=== PATIENT | female | born 1950 | race Caucasian/White ===

== ENCOUNTER → 2018-01-10 07:46 | Outpatient (CLI) | payer MEDICARE, SELFPAY | PROVIDERS: Family Provider Family Medicine; PCP Family Medicine; Visit Provider Family Medicine | DX: N28.1 Cyst of kidney, acquired (principal); R55 Syncope and collapse; I34.1 Nonrheumatic mitral (valve) prolapse | CPT/HCPCS: 76770; 93306 ==

== ENCOUNTER → 2018-01-15 09:45 | Outpatient (CLI) | payer MEDICARE, SELFPAY | PROVIDERS: Family Provider Family Medicine; PCP Family Medicine; Visit Provider Family Medicine | DX: Z00.00 Encounter for general adult medical examination without abnormal findings (principal); Z79.51 Long term (current) use of inhaled steroids | CPT/HCPCS: 77080 ==

== ENCOUNTER → 2018-01-25 09:42 | Outpatient (CLI) | payer MEDICARE, SELFPAY ==
[2018-01-25 12:39] LABS: Calcium,Total 9.1 mg/dL (8.5-10.1)
== END ==
PROVIDERS: Family Provider Family Medicine; PCP Family Medicine; Visit Provider Family Medicine
DX: Z13.820 Encounter for screening for osteoporosis (principal)
CPT/HCPCS: 36415; 82310

== ENCOUNTER → 2018-11-20 | Outpatient (CLI) | payer MEDICARE, SELFPAY ==
[2018-11-20 10:18] LABS: Absolute Lymphocyte Count 1.59 X10^3/ul (0.83-4.51); Absolute Neutrophil Count 1.9 X10^3/uL (2.0-7.7); Basophil# 0.02 X10^3/uL; Basophil% 0.5 % (0-1); Eosinophil# 0.13 X10^3/uL; Eosinophils% 3.3 % (0-5); Hematocrit 40.8 % (37-47); Hemoglobin 13.4 g/dl (12.0-15.0); Lymphocyte # 1.59 X10^3/ul (4.0); Lymphocyte % 39.8 % (19-41); Mean Corp Hgb Conc 32.8 g/gl (32-36); Mean Corpuscular Hgb 29.6 pg (27.0-32.0); Mean Corpuscular Volume 90.1 fL (81-99); Mean Platelet Vol. 11.3 fl (6.2-12.0); Neutrophil # 1.85 X10^3/uL (2.7-7.7); Neutrophil % 46.4 % (47-70); Platelet Count 200 K/mm3 (150-450); RBC Distribution Width CV 12.6 % (11.6-14.6); RBC Distribution Width SD 41.4 fl (35.1-43.9); Red Blood Count 4.53 M/mm3 (4.2-5.4)
[2018-11-20 10:19] LABS: POSITIVE COUNT NO; POSITIVE DIFFERENTIAL NO; POSITIVE MORPHOLOGY NO
[2018-11-20 10:34] LABS: Vitamin D,25 Hydroxy 39.7 ng/mL (29.95-100.01)
[2018-11-20 10:35] LABS: PTHIN 42.1 pg/mL (18.4-80.1)
[2018-11-20 10:45] LABS: Anion Gap 5 (5-15); BUN 8 mg/dL (7-18); BUN/Creat Ratio 11.8 RATIO (10-20); Calcium,Total 8.8 mg/dL (8.5-10.1); Chloride 106 mmol/L (98-107); Cholesterol 237 mg/dL (200); Creatinine, Serum 0.68 mg/dL (0.55-1.02); EST Glomerular Filtration Rate 92 mL/min (>60); Est Glom Filt Rate - Afr Amer 111 mL/min (>60); Glucose 89 mg/dL (74-106); High Density Lipoprotein 87 mg/dL; Sodium Level 140 mmol/L (136-145); Thyroid Stim Hormone (TSH) 1.88 uIU/mL (0.358-3.74); Triglycerides 65 mg/dL; Very Low Density Lipoprotein 13 mg/dL (5-40)
== END | disposition home or self-care (01) ==
PROVIDERS: Family Provider Family Medicine; PCP Family Medicine; Referring Provider Family Medicine; Visit Provider Family Medicine
DX: Z00.00 Encounter for general adult medical examination without abnormal findings (principal); R53.83 Other fatigue; E55.9 Vitamin D deficiency, unspecified
CPT/HCPCS: 36415; 80048; 80061; 82306; 83970; 84443; 85025

== ENCOUNTER → 2019-12-08 08:37 | Outpatient (CLI) | payer MEDICARE, SELFPAY ==
[2019-12-08 09:57] LABS: Absolute Neutrophil Count 2.4 X10^3/uL (2.0-7.7); Basophil# 0.05 X10^3/uL; Eosinophil# 0.12 X10^3/uL; Eosinophils% 2.3 % (0-5); Hematocrit 39.2 % (37-47); Hemoglobin 12.6 g/dL (12.0-15.0); Mean Corp Hgb Conc 32.1 g/dL (32-36); Mean Corpuscular Hgb 30.4 pg (27.0-32.0); Mean Corpuscular Volume 94.5 fL (81-99); Mean Platelet Vol. 11.4 fl (6.2-12.0); Monocyte# 0.43 X10^3/uL; Monocyte% 8.4 % (0-10); NRBC Flagged by Analyzer 0 % (0-5); Neutrophil # 2.41 X10^3/uL (2.7-7.7); Neutrophil % 47.1 % (47-70); Platelet Count 210 K/mm3 (150-450); RBC Distribution Width CV 12.6 % (11.6-14.6); RBC Distribution Width SD 43.7 fl (35.1-43.9); Red Blood Count 4.15 M/mm3 (4.2-5.4); White Blood Count 5.1 K/mm3 (4.4-11.0)
[2019-12-08 10:18] LABS: Vitamin B12 1072 pg/mL (211-911); Vitamin D,25 Hydroxy 80.4 ng/mL
[2019-12-08 10:58] LABS: Ferritin 33 ng/mL (8-252); Iron 83 ug/dL (50-170); Iron Binding Capacity,Total 313 ug/dL (250-450); PERCENT IRON SATURATION 26.5 % (15.0-55.0); T4 Free Direct 1.03 ng/dL (0.76-1.46); Thyroid Stim Hormone (TSH) 2.03 uIU/mL (0.358-3.74)
[2019-12-09 15:27] LABS: ANTINUCLEAR ANTIBODIES DIRECT Negative (Negative)
[2019-12-11 12:09] LABS: DHEA Sulfate 24.9 ug/dL (20.4-186.6); Testosterone, % Free 1.44 % (0.50-2.80); Testosterone, Free < 0.04 ng/dL (0.10-0.85); Testosterone, Total < 3 ng/dL (3-41)
[2019-12-11 15:24] LABS: Zinc, Plasma or Serum 74 ug/dL (56-134)
== END ==
PROVIDERS: PCP Family Medicine; Referring Provider Dermatology; Visit Provider Dermatology
DX: L65.0 Telogen effluvium (principal); B35.4 Tinea corporis; L82.1 Other seborrheic keratosis; L57.8 Other skin changes due to chronic exposure to nonionizing radiation
CPT/HCPCS: 36415; 82306; 82607; 82627; 82652; 82728; 82746; 83540; 83550; 84402; 84403; 84439; 84443; 84630; 85025; 86038; 82626

== ENCOUNTER → 2020-01-14 08:19 | Outpatient (CLI) | payer MEDICARE, SELFPAY | PROVIDERS: PCP Family Medicine; Referring Provider Family Medicine | DX: Z00.00 Encounter for general adult medical examination without abnormal findings (principal) | CPT/HCPCS: 36416 ==

== ENCOUNTER → 2020-01-22 07:30 | Outpatient (CLI) | payer MEDICARE, SELFPAY ==
--- NOTE | 2020-01-22 07:40 | BI_ITS ---
MAMMOGRAPHY - BILATERAL SCREENING REASON FOR EXAM: Female, 69 years old. Routine annual screening examination. PERTINENT HISTORY: Non-contributory. Remote right excisional breast biopsy. TECHNIQUE: Digital bilateral breast chapincito (3D mammographic acquisition) in the CC and MLO projections. 2-D mediolateral oblique (MLO) and craniocaudad (CC) views of both breasts were obtained. CAD: Full Field Digital Mammography with Computer Added Detection was performed. COMPARISON: Comparison is made with prior study dated 12/01/2016 and 04/06/2015. FINDINGS: Breast Composition: There are scattered areas of fibroglandular density. There are no dominant masses or suspicious calcifications. There is stable retraction of the right alveolar complex. Post biopsy scarring is seen in the retroareolar region of the right breast. No other significant abnormalities are identified. There has been no significant change since the prior study. BI/SCREEN MAMM (CAD) W/CHAPINCITO BILAT IMPRESSION: Stable bilateral screening mammogram. Yearly follow-up mammogram recommended. (A) ASSESSMENT CATEGORY: BIRADS Category 2: Benign. A letter regarding these results will be sent to the patient by the facility within 30 days. Approximately 10% of breast cancers are not detected by mammography. A normal mammogram should not delay biopsy of a clinically suspicious abnormality. [id number] Electronically Signed: Julio César Manzo, at 8:38 EDT , Service support ,
== END ==
PROVIDERS: PCP Family Medicine; Referring Provider Obstetrics & Gynecology; Visit Provider Obstetrics & Gynecology
DX: Z12.31 Encounter for screening mammogram for malignant neoplasm of breast (principal)
CPT/HCPCS: 77063; 77067

== ENCOUNTER → 2020-06-25 09:01 | Outpatient (CLI) | payer MEDICARE, SELFPAY ==
[2020-06-25 10:53] LABS: Free T3 2.4 pg/mL (2.18-3.98); Prealbumin 24.7 mg/dL (20.0-40.0); T4 Total, Thyroxin 8.5 ug/dL (4.8-13.9)
== END ==
PROVIDERS: PCP Family Medicine; Referring Provider Dermatology; Visit Provider Dermatology
DX: L65.0 Telogen effluvium (principal); Z48.02 Encounter for removal of sutures
CPT/HCPCS: 36415; 84134; 84436; 84481

== ENCOUNTER → 2021-02-10 13:18 | Outpatient (CLI) | payer MEDICARE, SELFPAY ==
--- NOTE | 2021-02-10 13:22 | BI_ITS ---
MAMMOGRAPHY - BILATERAL SCREENING REASON FOR EXAM: Female, 70 years old. Routine annual screening examination. PERTINENT HISTORY: Non-contributory. Remote right excisional breast biopsy. TECHNIQUE: Digital bilateral breast chapincito (3D mammographic acquisition) in the CC and MLO projections. 2-D mediolateral oblique (MLO) and craniocaudad (CC) views of both breasts were obtained. CAD: Full Field Digital Mammography with Computer Added Detection was performed. COMPARISON: Comparison is made with prior study dated 01/22/2020 and 12/01/2016. FINDINGS: Breast Composition: There are scattered areas of fibroglandular density. There are no dominant masses or suspicious calcifications. No other significant abnormalities are identified. There has been no significant change since the prior study. BI/SCRN MAMM (CAD)W/CHAPINCITO BILAT IMPRESSION: Stable bilateral screening mammogram. Yearly follow-up mammogram recommended. (A) ASSESSMENT CATEGORY: BIRADS Category 1: Negative. A letter regarding these results will be sent to the patient by the facility within 30 days. Approximately 10% of breast cancers are not detected by mammography. A normal mammogram should not delay biopsy of a clinically suspicious abnormality. [id number] Electronically Signed: Julio César Manzo MD at 14:31 EDT , Service support ,
--- NOTE | 2021-02-10 13:30 | BD_ITS ---
STUDY: DUAL ENERGY X-RAY ABSORPTIOMETRY / DXA REASON FOR EXAM: Female, 70 years old. V76.12ScreeningBONE DENSITY REASON FOR EXAM TECHNIQUE: Bone Mineral Density (BMD) measurements of lumbar spine and bilateral hips were obtained. COMPARISON: Comparison is made with prior study dated 01/15/2018. FINDINGS: Lumbar Spine (L1-L4): g/cm2 (0.684) / T-score (-3.3) / Z-score (-1.2) Findings are suggestive of osteoporosis with a high fracture risk. Left Femur Total: g/cm2 (0.710) / T-score (-1.9) / Z-score (-0.4) Left Femoral Neck: g/cm2 (0.640) / T-score (-1.9) / Z-score (-0.1) Right Femur Total: g/cm2 (0.737) / T-score (-1.7) / Z-score (-0.2) Right Femoral Neck: g/cm2 (0.676) / T-score (-1.6) / Z-score (0.2) The T-Scores on the most recent prior examination were: Lumbar Spine (L1-L4): There has been worsening of bone density since the previous examination. Left Femur Total: which represents a worsening of 9.1%. Right Femur Total: which represents a worsening of 4%. BD/Dexa Bone Density Study IMPRESSION: The patient is considered osteoporotic as outlined below according to World Jarad Organization (WHO) criteria with a high fracture risk. There has been worsening of bone density since the previous examination. Reference Information: The T-score is the number of standard deviations above or below the standard which is normal for young adults at their peak bone mineral density. The World Health Organization (WHO) interprets the T-scores as follows: Above -1 Normal bone density Between -1 and -2.5 Osteopenia Equal to / or below -2.5 Osteoporosis As a practical clinical guideline, osteopenia may be graded as follows: Mild -1 through -1.5 Moderate -1.6 through -2.0 Severe -2.1 through -2.4 The Z-score is the number of standard deviations above or below age-matched controls. A Z-score of less than -1.5 would be considered abnormal. References: 1. NIH Osteoporosis and Related Bone Diseases www osteo.org 2. International Society for Clinical Densitometry www iscd.org 3. National Osteoporosis Foundation www nof.org Electronically Signed: Julio César Manzo MD at 14:41 EDT , Service support ,
== END ==
PROVIDERS: PCP Family Medicine; Referring Provider Family Medicine; Visit Provider Family Medicine
DX: Z12.31 Encounter for screening mammogram for malignant neoplasm of breast (principal); M81.0 Age-related osteoporosis without current pathological fracture; Z78.0 Asymptomatic menopausal state
CPT/HCPCS: 77063; 77067; 77080

== ENCOUNTER → 2021-02-16 13:31 | Outpatient (CLI) | payer MEDICARE, SELFPAY ==
[2021-02-16 15:29] LABS: PTHIN 35.1 pg/mL (18.4-80.1)
[2021-02-16 15:34] LABS: Vitamin D,25 Hydroxy 66.8 ng/mL
[2021-02-16 15:49] LABS: Anion Gap 3 (5-15); BUN 11 mg/dL (7-18); BUN/Creat Ratio 17.5 RATIO (10-20); Calcium,Total 9.2 mg/dL (8.5-10.1); Chloride 104 mmol/L (98-107); Creatinine, Serum 0.63 mg/dL (0.55-1.02); EST Glomerular Filtration Rate 100 mL/min (>60); Est Glom Filt Rate - Afr Amer 120 mL/min (>60); Glucose 89 mg/dL (74-106); Magnesium 2.4 mg/dL (1.6-2.6); Phosphorus 3.8 mg/dL (2.5-4.9); Potassium 3.7 mmol/L (3.5-5.1); Sodium Level 140 mmol/L (136-145); Thyroid Stim Hormone (TSH) 1.44 uIU/mL (0.358-3.74)
== END ==
PROVIDERS: PCP Family Medicine; Referring Provider Family Medicine; Visit Provider Family Medicine
DX: M81.0 Age-related osteoporosis without current pathological fracture (principal); L65.9 Nonscarring hair loss, unspecified
CPT/HCPCS: 36415; 80048; 82306; 82330; 83735; 83970; 84100; 84443

== ENCOUNTER → 2021-04-21 | Outpatient (CLI) | payer MEDICARE, SELFPAY | END | disposition home or self-care (01) | PROVIDERS: PCP Family Medicine; Referring Provider Family Medicine; Visit Provider Family Medicine | DX: U07.1 COVID-19 (principal) | CPT/HCPCS: 87635; U0005; U0003 ==

== ENCOUNTER 2021-04-22 18:20 | Outpatient (CLI) | payer MEDICARE, SELFPAY ==
[2021-04-22 18:32] VITALS: BP 105/66; PULSE 98; RESP 16; TEMP 37.2; O2SAT 99; BMI 21.7
[2021-04-22] MEDS: 0.9% Saline Lock 10 ML Syringe IV (18:32)
[2021-04-22 19:09] VITALS: BP 107/57; PULSE 81; RESP 16; TEMP 37.1; O2SAT 95
[2021-04-22 19:56] VITALS: BP 104/64; PULSE 77; RESP 16; TEMP 37.1; O2SAT 97
== END 2021-04-22 20:06 | disposition home or self-care (01) ==
LOC: MS3OUT 18:20 → MS3 18:21
PROVIDERS: PCP Family Medicine; Visit Provider Nurse Practitioner Acute Care
DX: Z23 Encounter for immunization (principal); U07.1 COVID-19
CPT/HCPCS: J7050; M0245; Q0245; A4216

== ENCOUNTER 2021-06-15 11:43 | Outpatient (CLI) | payer MEDICARE, SELFPAY ==
[2021-06-15 15:56] LABS: Color, Urine Yellow (Yellow); Glucose, Dipstick Normal (Normal); Ketone-Dipstick 15 mg/dl (Negative); Leukocyte Esterase-Dipstick Negative /ul (Negative); Nitrite-Dipstick Negative (Negative); Occult Blood-Urine Negative /ul (Negative); Protein-Dipstick Negative (Negative); Urine Bilirubin Dipstick Negative (Negative); Urine Clarity Clear (Clear); Urine Urobilinogen Normal (Normal)
== END 2021-06-15 23:59 | disposition short-term general hospital (02) ==
LOC: LABSPEC 11:44
PROVIDERS: Family Medicine; PCP Family Medicine; Referring Provider Family Medicine; Visit Provider Family Medicine
DX: R52 Pain, unspecified (principal); R39.9 Unspecified symptoms and signs involving the genitourinary system
CPT/HCPCS: 81002; 87086

== ENCOUNTER 2021-06-24 09:37 | Outpatient (CLI) | payer MEDICARE, SELFPAY ==
--- NOTE | 2021-06-24 09:41 | US_ITS ---
STUDY: RENAL ULTRASOUND - COMPLETE REASON FOR EXAM: Female, 71 years old. BACK PAIN LEFT WORSE THAN RIGHT TECHNIQUE: Ultrasound evaluation of the kidneys was performed with real-time and static cruz-scale imaging. COMPARISON: Jan 10 2018 9:45am FINDINGS: RIGHT KIDNEY: Normal location of the right kidney, which is normal in size. The right kidney measures 11.1 x 6.4 cm. There is a normal cortex of the right kidney. The renal cortex measures 1.6 cm. There is no right renal mass or cyst. There are no right renal calculi. There is mild hydronephrosis of the right kidney. DISTAL RIGHT URETER: There is non-visualization of the distal right ureter. There is no demonstrated right ureterovesical junction calculus. There is no demonstrated right ureteral jet. LEFT KIDNEY: Normal location of the left kidney, which is normal in size. The left kidney measures 10.5 x 5.5 cm. There is a normal cortex of the left kidney. The renal cortex measures 1.6 cm. Cyst measures 49 x 46 mm and 63 x 15 mm. There are no left renal calculi. There is no left hydronephrosis. DISTAL LEFT URETER: There is non-visualization of the distal left ureter. There is no demonstrated left ureterovesical junction calculus. There is a visualized left ureteral jet. AORTA: There is obscuration of the abdominal aorta by overlying bowel gas I.V.C.: The IVC is obscured. BLADDER: The distended urinary bladder has a volume of 352 ml. There is a normal wall thickness of the distended urinary bladder. There is no demonstrated mass within the urinary bladder. There are no demonstrated bladder calculi. US/Kidney and Bladder IMPRESSION: There is mild hydronephrosis of the right kidney. The urinary bladder is distended. This can suggest urinary retention. There is hypoechoic foci of the left kidney. These are consistent for cysts. No follow up required. Electronically Signed: Maynor Bustos MD at 17:51 EST ,
== END 2021-06-24 23:59 | disposition home or self-care (01) ==
LOC: US 09:39
PROVIDERS: PCP Family Medicine; Referring Provider Urology; Visit Provider Urology
DX: M54.9 Dorsalgia, unspecified (principal); R39.89 Other symptoms and signs involving the genitourinary system
CPT/HCPCS: 76770

== ENCOUNTER 2021-06-29 07:06 | Outpatient (CLI) | payer MEDICARE, SELFPAY ==
[2021-06-29 10:52] LABS: Anion Gap 5 (5-15); BUN 12 mg/dL (7-18); BUN/Creat Ratio 16.3 RATIO (10-20); Calcium,Total 9.1 mg/dL (8.5-10.1); Chloride 104 mmol/L (98-107); Creatinine, Serum 0.74 mg/dL (0.55-1.02); EST Glomerular Filtration Rate 83 mL/min (>60); Est Glom Filt Rate - Afr Amer 100 mL/min (>60); Glucose 87 mg/dL (74-106); Potassium 3.8 mmol/L (3.5-5.1); Sodium Level 139 mmol/L (136-145)
== END 2021-06-29 23:59 | disposition home or self-care (01) ==
LOC: MTLAB 07:08
PROVIDERS: PCP Family Medicine; Referring Provider Urology; Visit Provider Urology
DX: N13.30 Unspecified hydronephrosis (principal)
CPT/HCPCS: 36415; 80048

== ENCOUNTER 2021-07-13 07:11 | Outpatient (CLI) | payer MEDICARE, SELFPAY ==
--- NOTE | 2021-07-13 07:17 | CT_ITS ---
STUDY: CT ABDOMEN AND PELVIS WITH AND WITHOUT CONTRAST REASON FOR EXAM: Female, 71 years old. Flank pain RADIATION DOSAGE (If Supplied By Facility): CTDIvol = ( 14.39 ) mGy, DLP = ( 1893.95 ) mGycm TECHNIQUE: Transaxial images were obtained from the dome of the diaphragm to the symphysis pubis without oral contrast. IV 100mL Isovue-300 was administered. Sagittal and coronal images were reconstructed. Individualized dose optimization techniques were used for this CT. COMPARISON: Ultrasound from 06/24/2021 FINDINGS: Lung bases are incompletely visualized. The liver is unremarkable aside from scattered simple cysts. No suspicious solid lesion. Normal gallbladder and extrahepatic biliary system. There are multiple benign calcified granulomata of the spleen. Normal pancreas. Normal bilateral adrenal glands. Right kidney enhances normally, there are scattered simple cysts and a mildly dilated UPJ am unsure if this is simply an extrarenal pelvis or a true dilatation of the UPJ there is no dilatation of the right ureter, no obstructing stone is noted. Left kidney shows large simple cysts and nonobstructing punctate stones. There is no left-sided hydronephrosis or hydroureter. Normal visualized stomach. Normal small intestine. Retained stool noted throughout the majority of the colon. There is non-visualization of the appendix. Normal abdominal aorta. Normal inferior vena cava. Normal retroperitoneum. Normal urinary bladder. Uterus is present, the endometrium cannot be accurately evaluated with CT. Normal abdominal wall. There are diffuse degenerative changes of the visualized lumbar spine, and pelvis. CT/CT Abd/Pelvis W/WO Contrast IMPRESSION: No obstructive uropathy. There is mild dilatation of the right UPJ or this may be an extrarenal pelvis. Bilateral simple renal cysts, no specific follow-up needed Nonobstructing left nephrolithiasis Simple hepatic cysts, no specific follow-up needed. Retained stool throughout the colon Uterus is present, the endometrium cannot be accurately evaluated with CT Electronically Signed: Eliazar Kasper MD at 17:38 EST ,
== END 2021-07-13 23:59 | disposition home or self-care (01) ==
PROVIDERS: PCP Family Medicine; Referring Provider Urology; Visit Provider Urology
DX: N13.30 Unspecified hydronephrosis (principal)
CPT/HCPCS: 74178; Q9967

== ENCOUNTER → 2021-09-05 | Outpatient (CLI) | payer MEDICARE, SELFPAY ==
[2021-09-05 18:48] LABS: Anion Gap 7 (5-15); BUN 7 mg/dL (7-18); BUN/Creat Ratio 10.9 RATIO (10-20); Calcium,Total 9.5 mg/dL (8.5-10.1); Chloride 103 mmol/L (98-107); Creatinine, Serum 0.64 mg/dL (0.55-1.02); EST Glomerular Filtration Rate 97 mL/min (>60); Est Glom Filt Rate - Afr Amer 117 mL/min (>60); Glucose 95 mg/dL (74-106); Magnesium 2.7 mg/dL (1.6-2.6); Potassium 3.7 mmol/L (3.5-5.1); Sodium Level 137 mmol/L (136-145); T4 Total, Thyroxin 10.8 ug/dL (4.8-13.9); Thyroid Stim Hormone (TSH) 1.86 uIU/mL (0.358-3.74)
== END | disposition home or self-care (01) ==
LOC: MTLAB 15:33
PROVIDERS: PCP Family Medicine; Referring Provider Internal Medicine Gastroenterology; Visit Provider Internal Medicine Gastroenterology
DX: K59.00 Constipation, unspecified (principal); R14.0 Abdominal distension (gaseous)
CPT/HCPCS: 36415; 80048; 83735; 84436; 84443

== ENCOUNTER → 2021-09-15 | Outpatient (CLI) | payer MEDICARE, SELFPAY ==
--- NOTE | 2021-09-15 11:05 | RAD_ITS ---
STUDY: XR Abdomen W/ Decub and/or Erect Views 09/15/2021 11:05 AM REASON FOR EXAM: Female, 71 years old. ABDOMINAL PAIN CHRONIC CONSTIPATION TECHNIQUE: XR Abdomen W/ Decub and/or Erect Views COMPARISON: None FINDINGS: Normal visualized lung bases. There is an unremarkable bowel gas pattern. There is no demonstrated free abdominal air. The visualized liver, spleen and kidneys are grossly normal in size and morphology. Normal soft tissue structures. Normal visualized osseous structures. RAD/Abd Inc Decub and/or Erect IMPRESSION: There are no acute findings. Electronically Signed: Maynor Bustos MD at 17:07 EDT ,
== END | disposition home or self-care (01) ==
LOC: RAD 10:50
PROVIDERS: PCP Family Medicine; Referring Provider Internal Medicine Gastroenterology; Visit Provider Internal Medicine Gastroenterology
DX: K59.00 Constipation, unspecified (principal)
CPT/HCPCS: 74019

== ENCOUNTER → 2021-09-23 | Outpatient (CLI) | payer MEDICARE, SELFPAY ==
--- NOTE | 2021-09-23 07:56 | RAD_ITS ---
STUDY: BARIUM ENEMA. REASON FOR EXAM: Female, 71 years old. CHANGE IN BOWELS FLUOROSCOPY TIME (if supplied): ( 1 minute and 11 seconds ) minutes/seconds. 17 images were obtained. TECHNIQUE: Barium was introduced retrograde through the rectum. The entire colon was opacified. Imaging was obtained. COMPARISON: None. FINDINGS: The entire colon was opacified. There is no evidence of a retrograde or antegrade obstruction to the floor of contrast. No mass lesion is seen. RAD/Barium Enema No Air Cont IMPRESSION: Unremarkable barium enema. Electronically Signed: Julio César Manzo MD at 10:48 EDT ,
== END | disposition home or self-care (01) ==
LOC: RAD 07:55
PROVIDERS: PCP Family Medicine; Referring Provider Internal Medicine Gastroenterology; Visit Provider Internal Medicine Gastroenterology
DX: R19.4 Change in bowel habit (principal)
CPT/HCPCS: 74270

== ENCOUNTER → 2021-10-17 | Outpatient (CLI) | payer MEDICARE, SELFPAY ==
--- NOTE | 2021-10-17 09:44 | US_ITS ---
STUDY: RENAL ULTRASOUND - COMPLETE REASON FOR EXAM: Female, 71 years old. ABD PAIN -- RIGHT FLANK PAIN TECHNIQUE: Ultrasound evaluation of the kidneys was performed with real-time and static cruz-scale imaging. COMPARISON: Comparison is made with prior study dated 06/24/2021. FINDINGS: RIGHT KIDNEY: Normal location of the right kidney, which is normal in size. The right kidney measures 10.4 cm x 5 cm x 5.7 cm. There is a normal cortex of the right kidney. The renal cortex measures 1.5 cm. There is no right renal mass or cyst. There are no right renal calculi. There is an extra-renal pelvis of the right kidney. There is no distention of the renal calyces. DISTAL RIGHT URETER: There is non-visualization of the distal right ureter. There is no demonstrated right ureterovesical junction calculus. There is no demonstrated right ureteral jet. LEFT KIDNEY: Normal location of the left kidney, which is normal in size. The left kidney measures 10.3 cm x 4.7 cm x 5 cm. There is a normal cortex of the left kidney. The renal cortex measures 1.7 cm. 2 left renal cysts are seen. The larger measures 5.8 cm x 4.9 cm x 4.5 cm. There are no left renal calculi. There is no left hydronephrosis. DISTAL LEFT URETER: There is non-visualization of the distal left ureter. There is no demonstrated left ureterovesical junction calculus. There is a visualized left ureteral jet. BLADDER: The distended urinary bladder has a volume of 364.1 ml. There is a normal wall thickness of the distended urinary bladder. There is no demonstrated mass within the urinary bladder. There are no demonstrated bladder calculi. US/Kidney and Bladder IMPRESSION: Stable left renal cysts. Electronically Signed: Julio César Manzo MD at 13:00 EDT ,
== END | disposition home or self-care (01) ==
LOC: US 09:42
PROVIDERS: PCP Family Medicine; Referring Provider Urology; Visit Provider Urology
DX: R10.9 Unspecified abdominal pain (principal); N28.89 Other specified disorders of kidney and ureter
CPT/HCPCS: 76770

== ENCOUNTER → 2022-01-09 | Outpatient (CLI) | payer MEDICARE, SELFPAY ==
--- NOTE | 2022-01-09 09:55 | RAD_ITS ---
STUDY: X-RAY CHEST REASON FOR EXAM: Female, 71 years old. Fatigue. TECHNIQUE: Frontal and lateral views of the chest. COMPARISON: 06/08/2014. FINDINGS: Stable hyperinflation. There is no demonstrated pleural abnormality. Normal size heart. Normal mediastinum and moraima. Normal visualized pulmonary arteries. Normal visualized aortic arch and descending thoracic aorta. Normal visualized thoracic spine. Normal visualized ribs, clavicles, and shoulders. There is no demonstrated abnormality of the visualized soft tissue structures of the upper abdomen. RAD/Chest PA and Lateral IMPRESSION: Stable hyperinflation. No active or acute cardiopulmonary disease. Electronically Signed: Efra Newman, at 11:30 EDT ,
--- NOTE | 2022-01-09 09:55 | RAD_ITS ---
STUDY: X-RAY - THORACIC SPINE REASON FOR EXAM: Female, 71 years old. Back pain. TECHNIQUE: 2 view(s) of the thoracic spine were obtained on 3 images. COMPARISON: None. FINDINGS: Osteopenia. Normal kyphosis of the thoracic spine. There is no substantial scoliosis. Normal thoracic vertebrae and endplates. Mild diffuse intervertebral disc space narrowing with small osteophytes. The soft tissue structures are unremarkable. RAD/Thoracic Spine 2 Views IMPRESSION: Osteopenia with diffuse mild lumbosacral spondylosis. No acute abnormality, evidence of erosive changes or fusion. Electronically Signed: Efra Newman, at 12:27 EDT ,
[2022-01-09 12:24] LABS: Vitamin B12 715 pg/mL (211-911); Vitamin D,25 Hydroxy 81.4 ng/mL
[2022-01-09 12:33] LABS: Erythrocyte Sedimentation Rate 10 mm/hr (0-30)
[2022-01-09 12:36] LABS: Hematocrit 40.8 % (37-47); Hemoglobin 13.7 g/dL (12.0-15.0); Mean Corp Hgb Conc 33.6 g/dL (32-36); Mean Corpuscular Hgb 30.9 pg (27.0-32.0); Mean Corpuscular Volume 91.9 fL (81-99); Platelet Count 206 K/mm3 (150-450); RBC Distribution Width CV 12.3 % (11.6-14.6); RBC Distribution Width SD 41.7 fl (35.1-43.9); Red Blood Count 4.44 M/mm3 (4.2-5.4); White Blood Count 3.9 K/mm3 (4.4-11.0)
[2022-01-09 12:49] LABS: CRP < 2.90 mg/L (0.0-3.0); Ferritin 33 ng/mL (8-252); Iron 109 ug/dL (50-170); Rheumatoid Factor < 10.0 IU/mL (<15); Thyroid Stim Hormone (TSH) 1.69 uIU/mL (0.358-3.74)
[2022-01-10 17:47] LABS: ANTINUCLEAR ANTIBODIES DIRECT Negative (Negative)
== END | disposition home or self-care (01) ==
PROVIDERS: PCP Family Medicine; Referring Provider Family Medicine; Visit Provider Family Medicine
DX: R53.83 Other fatigue (principal); M85.80 Other specified disorders of bone density and structure, unspecified site; M54.9 Dorsalgia, unspecified
CPT/HCPCS: 36415; 71046; 72070; 82306; 82607; 82728; 83540; 84443; 85027; 85652; 86038; 86140; 86431

== ENCOUNTER 2023-05-12 04:45 | Emergency (ER) | payer MEDICARE, SELFPAY ==
[2023-05-12 04:46] VITALS: BP 123/58; PULSE 69; RESP 16; TEMP 37; O2SAT 98; BMI 22.4
--- NOTE | 2023-05-12 05:10 | EDS_ITS ---
HPI HPI - GI History of Present Illness Chief Complaint: Constipation Informant: patient and spouse/S.O. Abdominal Pain/Flank Pain Onset: Weeks Context: Gradual Onset Timing: Continuous Current Severity: Mild Maximum Severity: Mild Nausea/Vomiting/Emesis GI Symptom: Positive for Nausea Severity: Mild Diarrhea/Melena/Hematochezia GI Symptom: Negative for Diarrhea, Melena or Hematochezia Associated Symptoms Associated Symptoms: Negative for Dysuria, Frequency, Hematuria or Urgency Narrative Narrative: 73-year-old female history of constipation. States she has not had a significant bowel movement for weeks. She has used laxatives at home. Enemas without any relief. Mild nausea no vomiting. Mild cramping. No dysuria. No fever. Prior abdominal surgeries include ovarian cyst removal and appendectomy. She is on no pain medications. No significant dietary changes. No recent hospitalization. Prior similar symptoms: Yes Recent Illness/Hospitalization: No [facility] Medical History Macular degeneration Mitral valve prolapse Home Medications ascorbate calcium (vitamin C) 500 mg capsule 1 g PO DAILY 04/22/21 [History Last Taken Unknown] cholecalciferol (vitamin D3) 125 mcg (5,000 unit) tablet (Vitamin D3) 125 mcg PO DAILY 04/22/21 [History Last Taken Unknown] coenzyme Q10 30 mg capsule (CoQ-10) 30 mg PO DAILY 04/22/21 [History Last Taken Unknown] lactobacillus combination no.4 3 billion cell capsule (Probiotic) 3,000 mmu cells PO DAILY 04/22/21 [History Last Taken Unknown] magnesium 200 mg tablet 400 mg PO DAILY 04/22/21 [History Last Taken Unknown] multivitamin 1 tab PO DAILY 04/22/21 [History Last Taken Unknown] omega-3 fatty acids 1,000 mg PO DAILY 04/22/21 [History Last Taken Unknown] psyllium 1 packet PO DAILY 04/22/21 [History Last Taken Unknown] zinc 25 mg tablet 25 mg PO DAILY 04/22/21 [History Last Taken Unknown] Allergy/AdvReac Type Severity Reaction Status Date / Time No Known Allergies Allergy Verified 04/22/21 13:20 Surgical History S/P appy Social History Smoking Status: Never smoker ROS ROS ED ROS Narrative Constipation. Mild nausea. Review of Systems ROS Unobtainable: Denies due to encephalopathy Constitutional Constitutional ED: Denies chills or fever(s) ENT ENT ED: Denies ear pain Cardiovascular Cardiovascular: Denies chest pain Respiratory/Chest Respiratory/Chest: Denies cough or dyspnea Gastrointestinal Gastrointestinal: Reports constipation and nausea Genitourinary Genitourinary ED: Denies dysuria or hematuria Musculoskeletal Musculoskeletal: Denies arthralgias Integumentary Denies abscess Neurologic Neurologic: Denies headache(s) Psychiatric Psychiatric: Denies anxiety Endocrine Endocrinology: Denies polydipsia Hematologic/Lymphatic Hematologic/Lymphatic: Denies easy bleeding Allergic/Immunologic Allergic/Immunologic ED: Denies mouth swelling, tongue swelling or urticaria EXAM Physical Exam Narrative Exam Narrative: Well-appearing 73-year-old female. Vital signs stable afebrile. HEENT exam unremarkable. Lungs clear equal symmetrical. Heart regular rhythm no murmur. Abdomen soft, nontender, nondistended normal bowel sounds no peritoneal signs. No localizing tenderness. No hernia or mass. No distention nor obstruction. Benign abdominal exam. Soft and scaphoid. Moving all 4 extremities. Awake and alert. No focal motor deficits. Benign exam. Const Vital Signs: 05/12/23 04:46 Temperature 98.6 F Temperature Source Oral Pulse Rate 69 Respiratory Rate 16 Blood Pressure 123/58 H Blood Pressure Mean 79 Pulse Ox 98 Oxygen Delivery Method Room Air Positive well nourished and well developed; Negative for obese, cachectic, contractures or unkempt General Appearance ED: well developed and NAD; Negative for unkempt, cachectic, contractures or pallor Nutritional Appearance: Negative for cachectic or obese HEENT Reports moist mucous membranes normocephalic and atraumatic; Negative for trauma or tenderness Eyes PERRL and EOMs intact bilaterally General Eye ED: Negative for pale conjunctiva or scleral icterus Neck no lymphadenopathy, supple and no JVD General: Negative for tenderness Carotids: Negative for other Lymph Lymphatic: Negative for other Resp normal respiratory effort and clear to auscultation bilaterally Effort and Inspection: Negative for respiratory distress Auscultation: Negative for rales, rhonchi or wheezes Cardio regular rate, regular rhythm, S1 normal heart sound, S2 normal heart sound and no murmurs Rate: Negative for bradycardia or tachycardic Rhythm: Negative for abnormal rhythm GI non-tender, non-distended and no masses Inspection: Negative for abdominal distention Auscultation: normoactive bowel sounds Palpation: soft; Negative for tender, guarding, rigid, hernia, mass, pulsatile mass or rebound tenderness present Back/Spine no CVA tenderness General Back: Negative for CVA tenderness Cervical Spine: Negative for cervical spine tenderness Thoracic Spine / Upper Back: Negative for thoracic spinal tenderness Lumbar Spine / Lower Back: Negative for lumbar spinal tenderness Coccyx: Negative for other Extremity full ROM General Extremety ED: Negative for edema, tenderness or other findings General Extremity: Negative for edema or other findings Neuro CN's II-XII intact bilaterally and moves all extremities Sensorium / Orientation: alert, oriented to person, oriented to place and oriented to time Motor Exam: strength 5/5 throughout Psych mental status grossly normal and thought process normal Appearance: Negative for unkempt Attitude: No agitated Mood & Affect: Negative for depressed, anxious or tearful Skin no wounds General Skin Exam: Negative for jaundice or pallor Lesions: no lesions Rashes: no rashes Trauma: Negative for abrasion Nails: Negative for discolored MDM MDM MDM Narrative Medical decision making narrative: 73-year-old complaining constipation. KUB will be obtained. Exam is benign. No signs of obstruction. Repeat exam patient doing well at 5:35 AM. Abdomen benign. We discussed her x- ray results. She will be discharged home with magnesium citrate. Radiography Diagnostic Testing: KUB, single view, interpreted by myself consistent with constipation. Increased stool. No bowel obstruction. No other acute findings. Increased stool throughout the entire colon and rectum. Discharge Plan Triage Chief Complaint: Constipation ED Provider: Ruben Longo Dx/Rx/DC Orders Clinical Impression: Acute constipation Instructions: ED Constipation (Adult) Prescriptions: No Action multivitamin Tablet 1 tab PO DAILY psyllium Packet 1 packet PO DAILY zinc 25 mg Tablet 25 mg PO DAILY coenzyme Q10 [CoQ-10] 30 mg Capsule 30 mg PO DAILY magnesium 200 mg Tablet 400 mg PO DAILY Fish Oil Capsule 1,000 mg PO DAILY Kathrin-C 500 mg Capsule 1 g PO DAILY cholecalciferol (vitamin D3) [Vitamin D3] 125 mcg (5,000 unit) Tablet 125 mcg PO DAILY Probiotic 3 billion cell Capsule 3,000 mmu cells PO DAILY Primary Care Provider: Jason Castillo Referrals: Jason Castillo MD [Primary Care Provider] - 1-2 Days if not improving Activity Restrictions/Additional Instructions: Drink one 8 ounce glass of the GoLytely every hour until you have a significant bowel movement. Plenty of fluids. Fiber. Fruits and vegetables. Follow-up with your doctor as needed. Disposition Disposition: Home, Self Care
--- NOTE | 2023-05-12 05:12 | RAD_ITS ---
INDICATION: constipation EXAMINATION/TECHNIQUE: X-RAY - XR Abdomen 1 View COMPARISON: No relevant prior comparison study available FINDINGS: BOWEL GAS PATTERN: Non-obstructive. No bowel or stomach distention. FREE AIR: Not assessed on a single supine view. ORGANOMEGALY: Not seen. CALCIFICATIONS: No abnormal calcifications observed. LOWER CHEST: No acute pathology. BONES AND SOFT TISSUES: No acute pathology. RAD/Abdomen Single View IMPRESSION: Non-obstructive bowel gas pattern. Electronically Signed: Rasta Negron MD at 9:00 EST ,
--- OUTSIDE RECORDS SUMMARY | 2023-05-12 05:24 | XMS RPT_ITS | CCD ---
Author Name Unknown Address [address] [place] [address] Organization [facility] Care Team Providers Care Logistics Manager Name Role Phone JULIAN KILGORE (ANDREW) Unavailable Unavailable JONN HAAS Unavailable Unavailabl AYUSH Clarke Unavailable Unavailable AYUSH PEDERSON Unavailable Unavailable JULIAN KILGORE (ANDREW) Unavailable Unavailable JULIAN KILGORE (PA) Unavailable Unavailable AYUSH PEDERSON Unavailable Unavailable Jonn Haas MD Primary Care Provider Jonn Haas MD Unavailable [phone] Problems Problem Classification Problem Date Documented Da te Episodic/Chronic Other gastrointestinal disorders (1 source) Change in bowel habit; Translations: [Change in bowel habit] Onset: 01-09-2017 Episodic Results Test Name Value Interpretation Reference Range Facil ity Encounters Encounter Date Encounter Type Care Provider Facility Start: 01-18-2017 End: 01-18-2017 Ambulatory JULIAN (ANDREW) [facility] Start: 01-09-2017 End: 01-09-2017 Ambulatory AYUSH PEDERSON [facility] Start: 12-28-2016 End: 01-03-2017 [facility] Start: 05-26-2006 Documentation procedure Khari Patterson MD Work Phone: [facility] Start: 05-26-2006 Historic EMR Khari houser MD Work Phone: [facility] Start: 01-17-2006 Documentation procedure Khari Patterson MD Work Phone: [facility] Start: 01-17-2006 Historic EMR Khari houser MD Work Phone: [facility] Procedures Date Procedure Procedure Detail Performing Clinician Start: 01-09-2017 Colonoscopy Khari santizo MD Work Phone: Start: 05-25-2006 SURGICAL PATHOLOGY, CONVERTED Khari Patterson MD Work Phone: Start: 01-17-2006 SURGICAL PATHOLOGY, CONVERTED Khari Patterson MD Work Phone: Plan of Treatment Date Care Activity Detail Author Start: 01-09-2027 Colonoscopy Colonoscopy [facility] Start: 01-09-2027 Colorectal Cancer Screening Colorectal Cancer Screening [facility] Start: 01-12-2023 Influenza vaccination Influenza Vacc ine (#1) [facility] Start: 05-14-2022 Advance Directive Discussion Advance Directive Discussion [facility] Start: 05-14-2022 Depression Assessment Depression Ass essment [facility] Start: 2016 Bone Density Screening Bone Density Screening [facility] Start: 2016 Pneumococcal Vaccine : 65+ (1 - PCV) Pneumococcal Vaccine: 65+ (1 - PCV) [facility] Start: 2001 Shingrix Vaccine (1 of 2) Shingrix V accine (1 of 2) [facility] Start: 1996 Cologuard (FIT-DNA) Cologuard (FIT-D NA) [facility] Start: [address] COLONOGRAPHY [facility] Start: 1996 Diabetes Screening Diabetes Screenin g [facility] Start: 1996 Fecal Occult Blood Fecal Occult Bloo d [facility] Start: 1996 Lipid 1996 panel - S ольга or Plasma Lipid Screening [facility] Start: 1996 SIGMOIDOSCOPY SIGMOIDOSCOPY [facility] Start: 1991 Mammography Mammogram Screening [facility] Start: 1970 Urine microalbumin profile DTa P,Tdap,Td Vaccine (1 - Tdap) [facility] Start: 1969 Hepatitis C Screening Hepatitis C Sc alonso [facility] Start: 1950 Covid-19 Vaccine (#1) Covid-19 Vacci ne (#1) [facility] Social History Date Type Detail Facility Tobacco smoking stat us NYIS Tobacco smoking consumption unknown [facility] Start: 1950 Sex Assigned At Not on file [facility] Gender identity Not on file [facility] inic Summary Purpose Family History No Family History Records Found Advance Directives Documents on File Type Date Recorded 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 Advance Directive(s) 01/09/2017 8:00 AM Additional Source Comments INFORMATION SOURCE (unrecogn ized section and content) Source Comments (unrecognize d section and content) In the event this informatio n is protected by the [facility] Confidentiality of Alcohol and Drug Abuse Patient Records regulations: The Federal rules restrict any use of the information to criminally investigate or prosecute any alcohol or drug abuse patient.[facility] the event this information is protected by the Federal Confidentiality of Alcohol and Drug Abuse Patient Records regulations: The Federal rules restrict any use of the information to criminally investigate or prosecute any alcohol or drug abuse patient.[facility] Care Teams (unrecognized sec tion and content) FOR RECORDS PERTAINING TO PATIENTS WHO ARE OR HAVE BEEN ENROLLED IN A CHEMICAL DEPENDENCY/SUBSTANCEABUSE PROGRAM, SOME INFORMATION MAY BE OMITTED. This clinical summary was aggregated from multiple sources. Caution should be exercised in using it in the provision of clinical care. This summary normalizes information from multiple sources, and as a consequence, information in this document may materially change the coding, format and clinical context of patient data. In addition, data may be omitted in some cases. CLINICAL DECISIONS SHOULD BE BASED ON THE PRIMARY CLINICAL RECORDS. [employer] [facility]. provides no warranty or guarantee of the accuracy or completeness of information in this document.
[2023-05-12] MEDS: Electrolyte Solution/Peg's 4000 ML 2000 ML PO (06:13)
[2023-05-12 06:14] VITALS: BP 127/66; PULSE 78; RESP 15; O2SAT 97
== END 2023-05-12 06:15 | disposition home or self-care (01) ==
PROVIDERS: Emergency Provider Emergency Medicine; PCP Family Medicine; Visit Provider Emergency Medicine
DX: K59.00 Constipation, unspecified (principal); R11.0 Nausea; Z79.899 Other long term (current) drug therapy
CPT/HCPCS: 74018; 99282

== ENCOUNTER → 2023-05-23 | Outpatient (CLI) | payer MEDICARE, SELFPAY ==
--- OUTSIDE RECORDS SUMMARY | 2023-05-23 16:57 | XMS RPT_ITS | CCD ---
Author Name Unknown Address [address] [place] [address] Organization [facility] Care Team Providers Care Bench Assembler Name Role Phone JULIAN KILGORE (ANDREW) Unavailable Unavailable JONN HAAS Unavailable Unavailabl AYUSH Clarke Unavailable Unavailable AYUSH PEDERSON Unavailable Unavailable JULIAN KILGORE (ANDREW) Unavailable Unavailable JULIAN KILGORE (PA) Unavailable Unavailable AYUSH PEDERSON Unavailable Unavailable Jonn Haas MD Primary Care Provider Jonn Haas MD Unavailable [phone] Problems Problem Classification Problem Date Documented Da te Episodic/Chronic Other gastrointestinal disorders (1 source) Change in bowel habit; Translations: [Change in bowel habit] Onset: 01-09-2017 Episodic Results Test Name Value Interpretation Reference Range Facil ity Encounters Encounter Date Encounter Type Care Provider Facility Start: 01-18-2017 End: 01-18-2017 Ambulatory JULIAN (ANDREW) [facility] Start: 01-09-2017 End: 01-09-2017 Ambulatory AYUSH PEDERSON [facility] Start: 12-28-2016 End: 01-03-2017 [facility]: [facility]2006 Documentation procedure Khari Patterson MD Work Phone: [facility] Start: 05-26-2006 Historic EMR Khari houser MD Work Phone: [facility] Start: 01-17-2006 Documentation procedure Khari Patterson MD Work Phone: [facility] Start: 01-17-2006 Historic EMR Khari houser MD Work Phone: [facility] Procedures Date Procedure Procedure Detail Performing Clinician Start: 01-09-2017 Colonoscopy Khari santizo MD Work Phone: Start: 05-25-2006 SURGICAL PATHOLOGY, CONVERTED Khari Patterson MD Work Phone: Start: 01-17-2006 SURGICAL PATHOLOGY, CONVERTED Khari Patterson MD Work Phone: Plan of Treatment Date Care Activity Detail Author Start: 01-09-2027 Colonoscopy Colonoscopy [facility] Start: 01-09-2027 Colorectal Cancer Screening Colorectal Cancer Screening [facility] Start: 01-12-2023 Influenza vaccination Influenza Vacc ine (#1) [facility] Start: 05-14-2022 Advance Directive Discussion Advance Directive Discussion [facility] Start: 05-14-2022 Depression Assessment Depression Ass essment [facility] Start: 2016 Bone Density Screening Bone Density Screening [facility] Start: 2016 Pneumococcal Vaccine : 65+ (1 - PCV) Pneumococcal Vaccine: 65+ (1 - PCV) [facility] Start: 2001 Shingrix Vaccine (1 of 2) Shingrix V accine (1 of 2) [facility] Start: 1996 Cologuard (FIT-DNA) Cologuard (FIT-D NA) [facility] Start: [address] COLONOGRAPHY [facility] Start: 1996 Diabetes Screening Diabetes Screenin g [facility] Start: 1996 Fecal Occult Blood Fecal Occult Bloo d [facility] Start: 1996 Lipid 1996 panel - S ольга or Plasma Lipid Screening [facility] Start: 1996 SIGMOIDOSCOPY SIGMOIDOSCOPY [facility] Start: 1991 Mammography Mammogram Screening [facility] Start: 1970 Urine microalbumin profile DTa P,Tdap,Td Vaccine (1 - Tdap) [facility] Start: 1969 Hepatitis C Screening Hepatitis C Sc alonso [facility] Start: 1950 Covid-19 Vaccine (#1) Covid-19 Vacci ne (#1) [facility] Social History Date Type Detail Facility Tobacco smoking stat us KSIS Tobacco smoking consumption unknown [facility] Start: 1950 Sex Assigned At Not on file [facility] Gender identity Not on file [facility] inic Summary Purpose Family History No Family History Records Found Advance Directives Documents on File Type Date Recorded 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 Advance Directive(s) 01/09/2017 8:00 AM Additional Source Comments INFORMATION SOURCE (unrecogn ized section and content) Source Comments (unrecognize d section and content) In the event this informatio n is protected by the [facility] Confidentiality of Alcohol and Drug Abuse Patient Records regulations: The Federal rules restrict any use of the information to criminally investigate or prosecute any alcohol or drug abuse patient.[facility] the event this information is protected by the Federal Confidentiality of Alcohol and Drug Abuse Patient Records regulations: The Federal rules restrict any use of the information to criminally investigate or prosecute any alcohol or drug abuse patient.[facility] Care Teams (unrecognized sec tion and content) [...] BE BASED ON THE PRIMARY CLINICAL RECORDS. [employer] [facility]. provides no warranty or guarantee of the accuracy or completeness of information in this document.
[2023-05-23 18:28] LABS: ALB/GLOB Ratio 1.1 RATIO (0.9-2.4); AST(SGOT) 18 U/L (15-37); Alanine Aminotransfer ALT/SGPT 22 U/L (13-56); Albumin, Serum 3.8 g/dL (3.2-5.0); Alkaline Phosphatase 65 U/L (45-117); Anion Gap 5 (5-15); BUN 6 mg/dL (7-18); BUN/Creat Ratio 10.3 RATIO (10-20); CRP < 2.90 mg/L (0.0-3.0); Calcium,Total 9.1 mg/dL (8.5-10.1); Chloride 106 mmol/L (98-107); Creatinine, Serum 0.58 mg/dL (0.55-1.02); EST Glomerular Filtration Rate 108 mL/min (>60); Est Glom Filt Rate - Afr Amer 130 mL/min (>60); Globulin 3.4 g/dL (2.2-4.2); Glucose 98 mg/dL (74-106); Potassium 3.7 mmol/L (3.5-5.1); Protein, Total 7.2 g/dL (6.4-8.2); Sodium Level 139 mmol/L (136-145); T4 Total, Thyroxin 9.7 ug/dL (4.8-13.9); Thyroid Stim Hormone (TSH) 1.36 uIU/mL (0.358-3.74)
[2023-05-25 15:08] LABS: Endomysial Antibody IgA Negative (Negative); Immunoglobulin A 414 mg/dL (64-422); t-Transglutaminase IgA <2 U/mL (0-3)
== END | disposition home or self-care (01) ==
PROVIDERS: PCP Family Medicine; Referring Provider Internal Medicine Gastroenterology; Visit Provider Internal Medicine Gastroenterology
DX: R19.4 Change in bowel habit (principal)
CPT/HCPCS: 36415; 80053; 82784; 83516; 84436; 84443; 86140; 86255

== ENCOUNTER → 2023-06-27 | Outpatient (CLI) | payer MEDICARE, SELFPAY ==
--- NOTE | 2023-06-27 14:32 | RAD_ITS ---
STUDY: X-RAY - ABDOMEN/PELVIS REASON FOR EXAM: Female, 73 years old. CONSTIPATION TECHNIQUE: 3 views COMPARISON: None. FINDINGS: Normal visualized lung bases. There is an unremarkable bowel gas pattern. There is no demonstrated free abdominal air. The visualized liver, spleen and kidneys are grossly normal in size and morphology. Normal soft tissue structures. Normal visualized osseous structures. RAD/[employer] Inc Decub and/or Erect IMPRESSION: Normal x-ray examination of the abdomen and pelvis. No significant colonic fecal retention. Electronically Signed: Eduardo Cao DO at 17:15 EST ,
--- OUTSIDE RECORDS SUMMARY | 2023-06-27 18:21 | XMS RPT_ITS | CCD ---
Author Name Unknown Address [address] [place] [address] Organization [facility] Care Team Providers Care Agricultural Purchasing Agent Name Role Phone JULIAN KILGORE (ANDREW) Unavailable Unavailable JONN HAAS Unavailable Unavailabl AYUSH Clarke Unavailable Unavailable AYUSH PEDERSON Unavailable Unavailable JULIAN KILGORE (ANDREW) Unavailable Unavailable JULIAN KILGORE (PA) Unavailable Unavailable AYUSH PEDERSON Unavailable Unavailable Jonn Haas MD Primary Care Provider Jonn Haas MD Unavailable Problems Problem Classification Problem Date Documented Da te Episodic/Chronic Other gastrointestinal disorders (1 source) Change in bowel habit; Translations: [Change in bowel habit] Onset: 01-09-2017 Episodic Results Test Name Value Interpretation Reference Range Facil ity Encounters Encounter Date Encounter Type Care Provider Facility Start: 01-18-2017 End: 01-18-2017 Ambulatory JULIAN (ANDREW) [facility] Start: 01-09-2017 End: 01-09-2017 Ambulatory AYUSH PEDERSON [facility] Start: 12-28-2016 End: 01-03-2017 [facility]: 05-26-2006 Documentation procedure Khari Patterson MD Work Phone: [facility] Start: 05-26-2006 Historic EMR Khari houser MD Work Phone: [facility] Start: 01-17-2006 Documentation procedure Khari Patterson MD Work Phone: [facility] Start: 01-17-2006 Historic EMR Khari houser MD Work Phone: [facility] Procedures Date Procedure Procedure Detail Performing Clinician Start: 01-09-2017 Colonoscopy Khari santizo MD Work Phone: Start: 05-25-2006 SURGICAL PATHOLOGY, CONVERTED Khari Patterson MD Work Phone: Start: 01-17-2006 SURGICAL PATHOLOGY, CONVERTED Khari Patterson MD Work Phone: Plan of Treatment Date Care Activity Detail Author Start: 01-09-2027 Colonoscopy Colonoscopy [facility] Start: 01-09-2027 Colorectal Cancer Screening Colorectal Cancer Screening [facility] Start: 01-12-2023 Influenza vaccination Influenza Vacc ine (#1) [facility] Start: 05-14-2022 Advance Directive Discussion Advance Directive Discussion [facility] Start: 05-14-2022 Depression Assessment Depression Ass essment [facility] Start: 2016 Bone Density Screening Bone Density Screening [facility] Start: 2016 Pneumococcal Vaccine : 65+ (1 - PCV) Pneumococcal Vaccine: 65+ (1 - PCV) [facility] Start: 2001 Shingrix Vaccine (1 of 2) Shingrix V accine (1 of 2) [facility] Start: 1996 Cologuard (FIT-DNA) Cologuard (FIT-D NA) [facility] Start: [address] COLONOGRAPHY [facility] Start: 1996 Diabetes Screening Diabetes Screenin g [facility] Start: 1996 Fecal Occult Blood Fecal Occult Bloo d [facility] Start: 1996 Lipid 1996 panel - S ольга or Plasma Lipid Screening [facility] Start: 1996 SIGMOIDOSCOPY SIGMOIDOSCOPY [facility] Start: 1991 Mammography Mammogram Screening [facility] Start: 1970 Urine microalbumin profile DTa P,Tdap,Td Vaccine (1 - Tdap) [facility] Start: 1969 Hepatitis C Screening Hepatitis C Sc alonso [facility] Start: 1950 Covid-19 Vaccine (#1) Covid-19 Vacci ne (#1) [facility] Social History Date Type Detail Facility Tobacco smoking stat us WAIS Tobacco smoking consumption unknown [facility] Start: 1950 Sex Assigned At Not on file [facility] Gender identity Not on file [facility] inic Summary Purpose Family History No Family History Records Found Advance Directives Documents on File Type Date Recorded Patient Sales Rep Expl anation Advance Directive(s) 01/09/2017 8:00 AM Additional Source Comments INFORMATION SOURCE (unrecogn ized section and content) Source Comments (unrecognize d section and content) In the event this informatio n is protected by the [facility] Confidentiality of Alcohol and Drug Abuse Patient Records regulations: The Federal rules restrict any use of the information to criminally investigate or prosecute any alcohol or drug abuse patient.[facility] the event this information is protected by the Federal Confidentiality of Alcohol and Drug Abuse Patient Records regulations: The Federal rules restrict any use of the information to criminally investigate or prosecute any alcohol or drug abuse patient.[facility] Care Teams (unrecognized sec tion and [...] BE BASED ON THE PRIMARY CLINICAL RECORDS. [employer] [facility]. provides no warranty or guarantee of the accuracy or completeness of information in this document.
== END | disposition home or self-care (01) ==
PROVIDERS: PCP Family Medicine; Referring Provider Family Medicine; Visit Provider Family Medicine
DX: K59.00 Constipation, unspecified (principal)
CPT/HCPCS: 74019

== ENCOUNTER → 2023-06-28 | Outpatient (CLI) | payer MEDICARE, SELFPAY ==
--- NOTE | 2023-06-28 13:24 | BI_ITS ---
MAMMOGRAPHY - BILATERAL SCREENING REASON FOR EXAM: Female, 73 years old. Routine annual screening examination. PERTINENT HISTORY: Non-contributory. Remote right excisional breast biopsy. TECHNIQUE: Digital bilateral breast chapincito (3D mammographic acquisition) in the CC and MLO projections. 2-D mediolateral oblique (MLO) and craniocaudad (CC) views of both breasts were obtained. CAD: Full Field Digital Mammography with Computer Added Detection was performed. COMPARISON: Comparison is made with prior study dated February 10, 2021 and January 22, 2020. FINDINGS: Breast Composition: There are scattered areas of fibroglandular density. There are no dominant masses or suspicious calcifications. No other significant abnormalities are identified. There has been no significant change since the prior study. BI/SCRN MAMM (CAD)W/CHAPINCITO BILAT IMPRESSION: Stable bilateral screening mammogram. Yearly follow-up mammogram recommended. (A) ASSESSMENT CATEGORY: BIRADS Category 1: Negative. A letter regarding these results will be sent to the patient by the facility within 30 days. Approximately 10% of breast cancers are not detected by mammography. A normal mammogram should not delay biopsy of a clinically suspicious abnormality. [id number] Electronically Signed: Julio César Manzo MD at 15:18 EST ,
--- NOTE | 2023-06-28 13:28 | BD_ITS ---
STUDY: DUAL ENERGY X-RAY ABSORPTIOMETRY / DXA REASON FOR EXAM: Female, 73 years old. [id number] TECHNIQUE: Bone Mineral Density (BMD) measurements of lumbar spine and bilateral hips were obtained. COMPARISON: Comparison is made with prior study of February 10, 2021. FINDINGS: Lumbar Spine (L1-L4): g/cm2 (0.672) / T-score (-3.4) / Z-score (-1.2) Findings are suggestive of osteoporosis with a high fracture risk. Left Femur Total: g/cm2 (0.764) / T-score (-1.5) / Z-score (0.2) Left Femoral Neck: g/cm2 (0.681) / T-score (-1.5) / Z-score (0.4) Right Femur Total: g/cm2 (0.754) / T-score (-1.5) / Z-score (0.1) Right Femoral Neck: g/cm2 (0.692) / T-score (-1.4) / Z-score (0.5) The T-Scores on the most recent prior examination were: Lumbar Spine (L1-L4): There has been worsening of bone density since the previous examination. Left Femur Total: which represents an improvement of 7.6%. Right Femur Total: which represents an improvement of 2.3%. BD/Dexa Bone Density Study IMPRESSION: The patient is considered osteoporotic as outlined below according to World Jarad Organization (WHO) criteria with a high fracture risk. There has been improvement of bone density since the previous examination. Reference Information: The T-score is the number of standard deviations above or below the standard which is normal for young adults at their peak bone mineral density. The World Health Organization (WHO) interprets the T-scores as follows: Above -1 Normal bone density Between -1 and -2.5 Osteopenia Equal to / or below -2.5 Osteoporosis As a practical clinical guideline, osteopenia may be graded as follows: Mild -1 through -1.5 Moderate -1.6 through -2.0 Severe -2.1 through -2.4 The Z-score is the number of standard deviations above or below age-matched controls. A Z-score of less than -1.5 would be considered abnormal. References: 1. NIH Osteoporosis and Related Bone Diseases www osteo.org 2. International Society for Clinical Densitometry www iscd.org 3. National Osteoporosis Foundation www nof.org Electronically Signed: Julio César Manzo MD at 13:23 EST ,
--- OUTSIDE RECORDS SUMMARY | 2023-06-28 19:26 | XMS RPT_ITS | CCD ---
Author Name Unknown Address [address] [place] [address] Organization [facility] Care Team Providers Care Melon Packer Name Role Phone JULIAN KILGORE (ANDREW) Unavailable Unavailable JONN HAAS Unavailable Unavailabl AYUSH Clarke Unavailable Unavailable AYUSH PEDERSON Unavailable Unavailable JULIAN KLIGORE (ANDREW) Unavailable Unavailable JULIAN KILGORE (PA) Unavailable Unavailable AYUSH PEDERSON Unavailable Unavailable Jonn Haas MD Primary Care Provider Jonn Haas MD Unavailable [phone] Problems Problem Classification Problem Date Documented Da te Episodic/Chronic Other gastrointestinal disorders (1 source) Change in bowel habit; Translations: [Change in bowel habit] Onset: 01-09-2017 Episodic Results Test Name Value Interpretation Reference Range Facil ity Encounters Encounter Date Encounter Type Care Provider Facility Start: 01-18-2017 End: 01-18-2017 Ambulatory JULIAN (ANDREW) [facility] Start: 01-09-2017 End: 01-09-2017 Ambulatory AYUSH PEDERSON [facility] Start: 12-28-2016 End: 01-03-2017 [facility]: [facility]-2006 Documentation procedure Khari Patterson MD Work Phone: [facility] Start: 05-26-2006 Historic EMR Khari houser MD Work Phone: [facility] Start: 01-17-2006 Documentation procedure Khari Patterson MD Work Phone: [facility] Start: 01-17-2006 Historic EMR Khari houser MD Work Phone: [facility] Procedures Date Procedure Procedure Detail Performing Clinician Start: 01-09-2017 Colonoscopy Khari santizo MD Work Phone: Start: 05-25-2006 SURGICAL PATHOLOGY, CONVERTED Khari Patterson MD Work Phone: Start: 01-17-2006 SURGICAL PATHOLOGY, CONVERTED Khari Patterson MD Work Phone: Plan of Treatment Date Care Activity Detail Author Start: 01-09-2027 Colonoscopy Colonoscopy [facility] Start: 01-09-2027 Colorectal Cancer Screening Colorectal Cancer Screening [facility] Start: 01-12-2023 Influenza vaccination Influenza Vacc ine (#1) [facility] Start: 05-14-2022 Advance Directive Discussion Advance Directive Discussion [facility] Start: 05-14-2022 Depression Assessment Depression Ass essment [facility] Start: 2016 Bone Density Screening Bone Density Screening [facility] Start: 2016 Pneumococcal Vaccine : 65+ (1 - PCV) Pneumococcal Vaccine: 65+ (1 - PCV) [facility] Start: 2001 Shingrix Vaccine (1 of 2) Shingrix V accine (1 of 2) [facility] Start: 1996 Cologuard (FIT-DNA) Cologuard (FIT-D NA) [facility] Start: [address] COLONOGRAPHY [facility] Start: 1996 Diabetes Screening Diabetes Screenin g [facility] Start: 1996 Fecal Occult Blood Fecal Occult Bloo d [facility] Start: 1996 Lipid 1996 panel - S ольга or Plasma Lipid Screening [facility] Start: 1996 SIGMOIDOSCOPY SIGMOIDOSCOPY [facility] Start: 1991 Mammography Mammogram Screening [facility] Start: 1970 Urine microalbumin profile DTa P,Tdap,Td Vaccine (1 - Tdap) [facility] Start: 1969 Hepatitis C Screening Hepatitis C Sc alonso [facility] Start: 1950 Covid-19 Vaccine (#1) Covid-19 Vacci ne (#1) [facility] Social History Date Type Detail Facility Tobacco smoking stat us MOIS Tobacco smoking consumption unknown [facility] Start: 1950 Sex Assigned At Not on file [facility] Gender identity Not on file [facility] inic Summary Purpose Family History No Family History Records Found Advance Directives Documents on File Type Date Recorded 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 Confidentiality of Alcohol and Drug Abuse Patient Records regulations: The Federal rules restrict any use of the information to criminally investigate or prosecute any alcohol or drug abuse patient.[facility] the event this information is protected by the Federal Confidentiality of Alcohol and Drug Abuse Patient Records regulations: The Federal rules restrict any use of the information to criminally investigate or prosecute any alcohol or drug abuse patient.[facility] Care Teams (unrecognized sec tion and [...] BE BASED ON THE PRIMARY CLINICAL RECORDS. [employer] [facility]. provides no warranty or guarantee of the accuracy or completeness of information in this document.
== END | disposition home or self-care (01) ==
LOC: OPBD 13:22
PROVIDERS: PCP Family Medicine; Referring Provider Family Medicine; Visit Provider Family Medicine
DX: Z00.00 Encounter for general adult medical examination without abnormal findings (principal); Z12.31 Encounter for screening mammogram for malignant neoplasm of breast; Z78.0 Asymptomatic menopausal state
CPT/HCPCS: 77063; 77067; 77080

== ENCOUNTER 2023-07-06 04:17 | Emergency (ER) | payer MEDICARE, SELFPAY ==
[2023-07-06 04:19] VITALS: BP 131/73; PULSE 78; RESP 18; TEMP 36.3; O2SAT 97; BMI 22.4
--- NOTE | 2023-07-06 04:40 | EDS_ITS ---
HPI HPI - GI History of Present Illness Chief Complaint: Abd Pain Informant: patient Narrative Narrative: Patient presents just after 4 AM to the ER for abdominal pain that she states has been constant for the past 4 months. She states it is not intermittent, it is always there but in the last couple days it is seem to be worse especially tonight. She states at the current time it is down a little but still a 7/10. The pain is in her epigastrium and wraps around into the right upper quadrant and flank. Sometimes it radiates into her back. Occasionally gets nausea but no vomiting. She states she was sent to the ER for this pain back in April 2 months ago, a KUB showed a lot of stool and she was given magnesium citrate, she states this resulted in some brown liquid stool but no change in her symptoms. Saw gastroenterology who did a colonoscopy prep that resulted in basically clear liquid stool, referred back to her PCP. She followed up with her doctor, had another KUB that was clear. No other imaging. She has noticed no specific patterns with meals. She states in the past 4 months, she has had no bowel movements except for the 2 times listed above when she did colonoscopy preps. The GI specialist gave her a prescription for Linzess, she has used that some but did not notice a big difference and so has not taken it in the last couple days. She otherwise is healthy ever having had COVID a coup le years ago and a partial oophorectomy with appendectomy remotely because of ovarian cyst issues. [facility] Medical History Macular degeneration Mitral valve prolapse Home Medications ascorbate calcium (vitamin C) 500 mg capsule 1 g PO DAILY 04/22/21 [History Last Taken Unknown] cholecalciferol (vitamin D3) 125 mcg (5,000 unit) tablet (Vitamin D3) 125 mcg PO DAILY 04/22/21 [History Last Taken Unknown] coenzyme Q10 30 mg capsule (CoQ-10) 30 mg PO DAILY 04/22/21 [History Last Taken Unknown] lactobacillus combination no.4 3 billion cell capsule (Probiotic) 3,000 mmu cells PO DAILY 04/22/21 [History Last Taken Unknown] magnesium 200 mg tablet 400 mg PO DAILY 04/22/21 [History Last Taken Unknown] multivitamin 1 tab PO DAILY 12/10/21 [History Last Taken Unknown] omega-3 fatty acids 1,000 mg PO DAILY 04/22/21 [History Last Taken Unknown] psyllium 1 packet PO DAILY 04/22/21 [History Last Taken Unknown] dicyclomine 10 mg capsule 20 mg (2 x 10 mg) PO Q6H PRN PRN abdominal pain #30 CAPSULES 07/06/23 [Rx Last Taken Unknown] linaclotide 145 mcg capsule (Linzess) 145 mcg PO DAILY 07/06/23 [History Last Taken Unknown] Allergy/AdvReac Type Severity Reaction Status Date / Time No Known Allergies Allergy Verified 07/06/23 04:22 Surgical History S/P appy Social History Smoking Status: Never smoker ROS ROS ED Constitutional Constitutional ED: Denies chills or fever(s) Eyes Eyes: Denies change in vision or diplopia ENT ENT ED: Denies rhinorrhea or sore throat Cardiovascular Cardiovascular: Denies chest pain or palpitations Respiratory/Chest Respiratory/Chest: Denies cough or dyspnea Gastrointestinal Gastrointestinal: Reports as per HPI, abdominal pain and nausea; Denies diarrhea or vomiting Genitourinary Genitourinary ED: Denies dysuria or hematuria Musculoskeletal Musculoskeletal: Denies back pain or neck pain Integumentary Denies abscess or rash Neurologic Neurologic: Denies headache(s), paresthesias or weakness Psychiatric Psychiatric: Denies anxiety or suicidal thoughts EXAM Physical Exam Const Vital Signs: 07/06/23 04:19 Temperature 97.3 F L Temperature Source Temporal Pulse Rate 78 Respiratory Rate 18 Blood Pressure 131/73 H Blood Pressure Mean 92 Pulse Ox 97 Oxygen Delivery Method Room Air Positive well nourished and well developed General Appearance ED: well developed and NAD HEENT Reports moist mucous membranes normocephalic and atraumatic Eyes PERRL and EOMs intact bilaterally Neck full ROM and supple Resp normal respiratory effort and clear to auscultation bilaterally Cardio regular rate, regular rhythm and no murmurs GI non-distended GI Narrative: Mild tenderness mostly in the epigastrium and medial right upper quadrant. No guarding or rebound tenderness. No palpable masses. No distention. Otherwise, benign exam. Auscultation: hyperactive bowel sounds Palpation: soft Back/Spine no CVA tenderness General Back: other FROM Extremity normal to inspection General Extremety ED: Negative for edema, pulses abnormal or tenderness General Extremity: Negative for edema or pulses abnormal Neuro oriented x3, CN's II-XII intact bilaterally and no sensory deficits noted Sensorium / Orientation: awake and alert Motor Exam: strength 5/5 throughout Skin no rashes or lesions noted and no wounds MDM MDM MDM Narrative Medical decision making narrative: Differential includes functional GI etiologies which is high on my list, in addition to colonic issues and constipation, less likely diverticulitis given the duration of pain, less likely biliary in etiology. Patient presents when ultrasound is not an available service at the hospital, given the hour of night. Therefore I did a bedside ultrasound of the right upper quadrant, using color Doppler to verify location of the gallbladder, I see no shadowing stones, pericholecystic fluid, or gallbladder wall thickening. I am not able to rule out the possibility of chronic cholecystitis here, but I do not see anything acute and she is not particularly tender. Given all of this, especially the fact that the patient states she has not had a normal bowel movement in 4 months, and given her age, I think it is reasonable to perform a CT of the abdomen/pelvis to differentiate this further. She was amenable. I reviewed the images and the result which I agree with, essentially it is in fact consistent with constipation. She has a significant colonic stool burden. Incidental findings were discussed with her one by one. I do not think any of incidental findings are causing her pain, I think it is likely due to the fact that she has not been able to have a good bowel movement. She was amenable to trying a soapsuds enema which we did. She had a lot of liquid brown come out but no solid stool. She was given dicyclomine and that did help her discomfort. She does not have leukocytosis to suggest there is an acute inflammatory condition here. At this time uncomfortable with her going home and continuing MiraLAX, when we discussed further she already tried polyethylene glycol as an outpatient. She is welcome to try magnesium citrate and the above again, and follow-up with GI who she saw before. Lab Data Attestation: I reviewed the patient's lab results. Labs: Laboratory Results - last 24 hr 07/06/23 07/06/23 04:30 04:52 WBC 5.9 RBC 4.45 Hgb 13.3 Hct 40.2 MCV 90.3 MCH 29.9 MCHC 33.1 RDW Std Deviation 43.6 RDW Coeff of Cameron 13.2 Plt Count 217 MPV 10.9 Immature Gran % (Auto) 0.200 Neut % (Auto) 46.0 L Lymph % (Auto) 40.3 Highlands % (Auto) 10.8 H Eos % (Auto) 1.7 Baso % (Auto) 1.0 Absolute Neuts (auto) 2.7 Absolute Lymphs (auto) 2.36 Nucleated RBC % 0 Sodium 139 Potassium 3.5 Chloride 107 Carbon Dioxide 28.0 Anion Gap 4 L BUN 10 Creatinine 0.67 Estim Creat Clear Calc 57.20 Est GFR (MDRD) Af Amer 111 Est GFR (MDRD) Non-Af 92 BUN/Creatinine Ratio 14.9 Glucose 103 Calcium 9.3 Total Bilirubin 0.60 AST 16 ALT 18 Alkaline Phosphatase 67 Total Protein 7.1 Albumin 3.6 Globulin 3.5 Albumin/Globulin Ratio 1.0 Lipase 58 Urine Color Yellow Urine Clarity Clear Urine pH 6.5 Ur Specific Alford 1.015 Urine Protein Negative Urine Glucose (UA) Normal Urine Ketones 15 H Urine Occult Blood 10 H Urine Nitrite Negative Urine Bilirubin Negative Urine Urobilinogen Normal Ur Leukocyte Esterase 25 H Urine RBC 0 SEEN Urine WBC 0 SEEN Ur Squamous Epith Cells 0 SEEN Urine Bacteria 0 SEEN Urine Mucus 0 SEEN Radiography Diagnostic Testing: Clinical Impression(s) from Imaging Studies Abdomen/Pelvis CT 07/06/23 05:02 IMPRESSION: Possible small ulceration versus prominent rugal fold at the superior gastric antrum. No evidence of perforation. Fluoroscopic upper GI or endoscopy could further evaluate as clinically indicated. Far right lateral retrocecal ovary with 1.3 cm cyst or cystic mass is suggested. Transabdominal pelvic ultrasound recommended to further evaluate when clinically able. Moderate to large colonic stool burden.. Redemonstration of hepatic and renal cysts, no specific imaging follow-up recommended. Electronically Signed: Jb Christine MD at 6:46 EST , Discharge Plan Triage Chief Complaint: Abd Pain ED Provider: Donovan Kumar Dx/Rx/DC Orders Clinical Impression: Abdominal pain, right upper quadrant, Constipation Instructions: Abdominal Pain, ED Constipation (Adult) Prescriptions: New dicyclomine 10 mg capsule 20 mg PO Q6H PRN PRN (Reason: abdominal pain) Qty: 30 0RF No Action multivitamin Tablet 1 tab PO DAILY psyllium Packet 1 packet PO DAILY coenzyme Q10 [CoQ-10] 30 mg Capsule 30 mg PO DAILY magnesium 200 mg Tablet 400 mg PO DAILY Fish Oil Capsule 1,000 mg PO DAILY Kathrin-C 500 mg Capsule 1 g PO DAILY cholecalciferol (vitamin D3) [Vitamin D3] 125 mcg (5,000 unit) Tablet 125 mcg PO DAILY Probiotic 3 billion cell Capsule 3,000 mmu cells PO DAILY Linzess 145 mcg capsule 145 mcg PO DAILY Primary Care Provider: Jason Castillo Referrals: Jason Castillo MD [Primary Care Provider] - Disposition Disposition: Home, Self Care
[2023-07-06] MEDS: Dicyclomine 10 MG Capsule 20 MG PO (04:48)
[2023-07-06 04:49] LABS: Absolute Lymphocyte Count 2.36 X10^3/uL (0.83-4.51); Absolute Neutrophil Count 2.7 X10^3/uL (2.0-7.7); Basophil# 0.06 X10^3/uL; Eosinophils% 1.7 % (0-5); Hematocrit 40.2 % (37-47); Hemoglobin 13.3 g/dL (12.0-15.0); Lymphocyte # 2.36 X10^3/ul (0.83-4.51); Lymphocyte % 40.3 % (19-41); Mean Corp Hgb Conc 33.1 g/dL (32-36); Mean Corpuscular Hgb 29.9 pg (27.0-32.0); Mean Corpuscular Volume 90.3 fL (81-99); Mean Platelet Vol. 10.9 fl (6.2-12.0); Monocyte# 0.63 X10^3/uL; Monocyte% 10.8 % (0-10); NRBC Flagged by Analyzer 0 % (0-5); Neutrophil # 2.69 X10^3/uL (2.7-7.7); Platelet Count 217 K/mm3 (150-450); RBC Distribution Width CV 13.2 % (11.6-14.6); RBC Distribution Width SD 43.6 fl (35.1-43.9); Red Blood Count 4.45 M/mm3 (4.2-5.4); White Blood Count 5.9 K/mm3 (4.4-11.0)
[2023-07-06 04:57] LABS: Bacteria 0 SEEN /hpf (None Seen); Mucous, Urine 0 SEEN /hpf (<or=2+); Red Blood Cells-Urine 0 SEEN /hpf (0-5); Squamous Epithelial Cells - UA 0 SEEN /hpf (5-10); White Blood Cells 0 SEEN /hpf (0-5)
[2023-07-06 04:59] LABS: Color, Urine Yellow (Yellow); Glucose, Dipstick Normal (Normal); Ketone-Dipstick 15 mg/dl (Negative); Leukocyte Esterase-Dipstick 25 /ul (Negative); Nitrite-Dipstick Negative (Negative); Occult Blood-Urine 10 /ul (Negative); Protein-Dipstick Negative (Negative); Specific Gravity, Urine 1.015 (1.002-1.030); Urine Bilirubin Dipstick Negative (Negative); Urine Clarity Clear (Clear); Urine Urobilinogen Normal (Normal); Urine pH 6.5 (5.0 - 8.0)
--- NOTE | 2023-07-06 05:02 | CT_ITS ---
INDICATION: upper abd pain EXAMINATION: CT ABDOMEN AND PELVIS WITH CONTRAST - CT Abdomen And Pelvis W/ Contrast Injection TECHNIQUE: Helically acquired images were obtained of the abdomen and pelvis following IV contrast. A radiation dose optimization technique was used for this scan. IV Contrast dosage and agent: 100 mL Isovue-370 Oral contrast: None. COMPARISON: July 13, 2021. FINDINGS: LOWER CHEST: Lung bases are clear. No cardiomegaly or pericardial effusion. LIVER: Multiple hepatic cysts. Otherwise unremarkable liver. GALLBLADDER AND BILIARY TREE: No calcified gallstones. No gallbladder distension or wall edema. No intra- or extrahepatic biliary ductal dilation. PANCREAS: No focal cystic or solid mass. SPLEEN: Normal size without focal cystic or solid mass. ADRENAL GLANDS: No nodules. KIDNEYS AND URETERS: Bilateral renal cysts present up to 5.5 cm in size in the left, no specific imaging follow-up required. No hydronephrosis or perinephric inflammation. . BOWEL: Possible ulceration or prominent rugal fold at the superior gastric antrum, axial image 25 sagittal image 100, without surrounding inflammation, free fluid or free air. No small bowel distention or focal wall thickening. Prior appendectomy reported. Mild stranding posterior to the cecum is similar to the left adnexa, favored represent for right lateral ovary with 1.3 cm cyst or cystic mass. Moderate to large colonic stool burden. LYMPH NODES: No enlarged mesenteric or retroperitoneal lymph nodes. VESSELS: Aorta is non-dilated. URINARY BLADDER: Unremarkable. REPRODUCTIVE ORGANS: Small postmenopausal uterus with endometrial thickening to 1.1 cm. Unremarkable left ovary. Right ovary as above.. ABDOMINAL WALL: No discrete abdominal or pelvic wall hernia. BONES: No lytic or blastic abnormality. CT/Abdomen/Pelvis W IV Cont ONLY IMPRESSION: Possible small ulceration versus prominent rugal fold at the superior gastric antrum. No evidence of perforation. Fluoroscopic upper GI or endoscopy could further evaluate as clinically indicated. Far right lateral retrocecal ovary with 1.3 cm cyst or cystic mass is suggested. Transabdominal pelvic ultrasound recommended to further evaluate when clinically able. Moderate to large colonic stool burden.. Redemonstration of hepatic and renal cysts, no specific imaging follow-up recommended. Electronically Signed: Jb Christine MD at 6:46 EST ,
[2023-07-06 05:06] LABS: AST(SGOT) 16 U/L (15-37); Alanine Aminotransfer ALT/SGPT 18 U/L (13-56); Albumin, Serum 3.6 g/dL (3.2-5.0); Alkaline Phosphatase 67 U/L (45-117); Anion Gap 4 (5-15); BUN 10 mg/dL (7-18); BUN/Creat Ratio 14.9 RATIO (10-20); Calcium,Total 9.3 mg/dL (8.5-10.1); Chloride 107 mmol/L (98-107); Creatinine, Serum 0.67 mg/dL (0.55-1.02); EST Glomerular Filtration Rate 92 mL/min (>60); Est Glom Filt Rate - Afr Amer 111 mL/min (>60); Globulin 3.5 g/dL (2.2-4.2); Glucose 103 mg/dL (74-106); Lipase 58 U/L (13-75); Potassium 3.5 mmol/L (3.5-5.1); Protein, Total 7.1 g/dL (6.4-8.2); Sodium Level 139 mmol/L (136-145)
--- OUTSIDE RECORDS SUMMARY | 2023-07-06 05:15 | XMS RPT_ITS | CCD ---
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: [facility]2006 Documentation procedure Khari Patterson MD Work Phone: [facility] Start: 05-26-2006 Historic EMR Khari houser MD Work Phone: [facility] Start: 01-17-2006 Documentation procedure Khari Patterson MD Work Phone: [facility] Start: 01-17-2006 Historic EMR Khari houser MD Work Phone: [facility] Procedures Date Procedure Procedure Detail Performing Clinician Start: 01-09-2017 Colonoscopy Khari santizo MD Work Phone: Start: 05-25-2006 SURGICAL PATHOLOGY, CONVERTED Khari Patterson MD Work Phone: Start: 01-17-2006 SURGICAL PATHOLOGY, CONVERTED Khari Patterson MD Work Phone: Plan of Treatment Date Care Activity Detail Author Start: 01-09-2027 Colonoscopy Colonoscopy [facility] Start: 01-09-2027 Colorectal Cancer Screening Colorectal Cancer Screening [facility] Start: 01-12-2023 Influenza vaccination Influenza Vacc ine (#1) [facility] Start: 05-14-2022 Advance Directive Discussion Advance Directive Discussion [facility] Start: 05-14-2022 Depression Assessment Depression Ass essment [facility] Start: 2016 Bone Density Screening Bone Density Screening [facility] Start: 2016 Pneumococcal Vaccine : 65+ (1 - PCV) Pneumococcal Vaccine: 65+ (1 - PCV) [facility] Start: 2001 Shingrix Vaccine (1 of 2) Shingrix V accine (1 of 2) [facility] Start: 1996 Cologuard (FIT-DNA) Cologuard (FIT-D NA) [facility] Start: [address] COLONOGRAPHY [facility] Start: 1996 Diabetes Screening Diabetes Screenin g [facility] Start: 1996 Fecal Occult Blood Fecal Occult Bloo d [facility] Start: 1996 Lipid 1996 panel - S ольга or Plasma Lipid Screening [facility] Start: 1996 SIGMOIDOSCOPY SIGMOIDOSCOPY [facility] Start: 1991 Mammography Mammogram Screening [facility] Start: 1970 Urine microalbumin profile DTa P,Tdap,Td Vaccine (1 - Tdap) [facility] Start: 1969 Hepatitis C Screening Hepatitis C Sc alonso [facility] Start: 1950 Covid-19 Vaccine (#1) Covid-19 Vacci ne (#1) [facility] Social History Date Type Detail Facility Tobacco smoking stat us PAIS Tobacco smoking consumption unknown [facility] Start: 1950 Sex Assigned At Not on file [facility] Gender identity Not on file [facility] inic Summary Purpose Family History No Family History Records Found Advance Directives Documents on File Type Date Recorded Patient Deposition Reporter Expl anation Advance Directive(s) 01/09/2017 8:00 AM Additional Source Comments INFORMATION SOURCE (unrecogn ized section and content) Source Comments (unrecognize d section and content) In the event this informatio n is protected by the [facility] Confidentiality of Alcohol and Drug Abuse Patient Records regulations: The Federal rules restrict any use of the information to criminally investigate or prosecute any alcohol or drug abuse patient.[facility] the event this information is protected by the Federal Confidentiality of Alcohol and Drug Abuse Patient Records regulations: The Federal rules restrict any use of the information to criminally investigate or prosecute any alcohol or drug abuse patient.[facility] Care Teams (unrecognized sec tion and [...] BE BASED ON THE PRIMARY CLINICAL RECORDS. [facility]. provides no warranty or guarantee of the accuracy or completeness of information in this document.
[2023-07-06 08:28] VITALS: BP 124/78; PULSE 74; RESP 16; TEMP 36.6; O2SAT 98
== END 2023-07-06 08:30 | disposition home or self-care (01) ==
PROVIDERS: Emergency Provider Emergency Medicine; PCP Family Medicine; Visit Provider Emergency Medicine
DX: K59.00 Constipation, unspecified (principal); R10.13 Epigastric pain; R10.11 Right upper quadrant pain; Z79.899 Other long term (current) drug therapy
CPT/HCPCS: 74177; 80053; 81001; 83690; 85025; 99284; Q9967; A4216

== ENCOUNTER → 2023-07-18 | Outpatient (CLI) | payer MEDICARE, SELFPAY ==
--- NOTE | 2023-07-18 14:44 | US_ITS ---
INDICATION: OVARIAN CYST EXAMINATION: Ultrasound US Transvaginal Non-OB TECHNIQUE: Transabdominal and transvaginal (for optimal evaluation of the adnexa) pelvic ultrasound was performed. Grayscale, spectral waveform, and color flow Doppler evaluation of the adnexa. COMPARISON: CT scan of the abdomen and pelvis of 07/06/2023 FINDINGS: UTERUS: Anteverted. The uterus measures 4.6 x 3.8 x 2.6 cm. There is no uterine mass. The endometrial stripe measures 13 mm in AP diameter which is thickened for a postmenopausal patient. RIGHT OVARY: Not visualized. LEFT OVARY: Not visualized. FREE FLUID: None. US/Transvaginal Non- IMPRESSION: 1. Abnormal thickening of the endometrium for a postmenopausal patient. Follow-up examination or FISH ROE TECHNICIAN consult is recommended. 2. Nonvisualization of both ovaries. Electronically Signed: Rasta Negron MD at 13:58 EST ,
--- OUTSIDE RECORDS SUMMARY | 2023-07-18 19:50 | XMS RPT_ITS | CCD ---
Author Name Unknown Address [address] [place] [address] Organization [facility] Care Team Providers Care Binding End Stitcher Name Role Phone JULIAN KILGORE (ANDREW) Unavailable [...] Start: 01-18-2017 End: 01-18-2017 Ambulatory JULIAN (ANDREW) [facility] Start: 01-09-2017 End: 01-09-2017 Ambulatory AYUSH PEDERSON [facility] Start: 12-28-2016 End: 01-03-2017 [facility] Start: 05-26-2006 Documentation procedure Khari Patterson MD Work Phone: [facility] Start: 05-26-2006 Historic EMR Khari houser MD Work Phone: [facility] Start: 01-17-2006 Documentation procedure Khari Patterson MD Work Phone: [facility] Start: 01-17-2006 Historic EMR Khari houser MD Work Phone: [facility] Procedures Date Procedure Procedure Detail Performing Clinician Start: 01-09-2017 Colonoscopy Khari santizo MD Work Phone: Start: 05-25-2006 SURGICAL PATHOLOGY, CONVERTED Khari Patterson MD Work Phone: Start: 01-17-2006 SURGICAL PATHOLOGY, CONVERTED Khari Patterson MD Work Phone: Plan of Treatment Date Care Activity Detail Author Start: 01-09-2027 Colonoscopy Colonoscopy [facility] Start: 01-09-2027 Colorectal Cancer Screening Colorectal Cancer Screening [facility] Start: 01-12-2023 Influenza vaccination Influenza Vacc ine (#1) [facility] Start: 05-14-2022 Advance Directive Discussion Advance Directive Discussion [facility] Start: 05-14-2022 Depression Assessment Depression Ass essment [facility] Start: 2016 Bone Density Screening Bone Density Screening [facility] Start: 2016 Pneumococcal Vaccine : 65+ (1 - PCV) Pneumococcal Vaccine: 65+ (1 - PCV) [facility] Start: 2001 Shingrix Vaccine (1 of 2) Shingrix V accine (1 of 2) [facility] Start: 1996 Cologuard (FIT-DNA) Cologuard (FIT-D NA) [facility] Start: [address] COLONOGRAPHY [facility] Start: 1996 Diabetes Screening Diabetes Screenin g [facility] Start: 1996 Fecal Occult Blood Fecal Occult Bloo d [facility] Start: 1996 Lipid 1996 panel - S ольга or Plasma Lipid Screening [facility] Start: 1996 SIGMOIDOSCOPY SIGMOIDOSCOPY [facility] Start: 1991 Mammography Mammogram Screening [facility] Start: 1970 Urine microalbumin profile DTa P,Tdap,Td Vaccine (1 - Tdap) [facility] Start: 1969 Hepatitis C Screening Hepatitis C Sc alonso [facility] Start: 1950 Covid-19 Vaccine (#1) Covid-19 Vacci ne (#1) [facility] Social History Date Type Detail Facility Tobacco smoking stat us ORIS Tobacco smoking consumption unknown [facility] Start: 1950 Sex Assigned At Not on file [facility] Gender identity Not on file [facility] inic Summary Purpose Family History No Family History Records Found Advance Directives Documents on File Type Date Recorded Patient Nnps Expl anation Advance Directive(s) 01/09/2017 8:00 AM Additional Source Comments INFORMATION SOURCE (unrecogn ized section and content) Source Comments (unrecognize d section and content) In the event this informatio n is protected by the [facility] Confidentiality of Alcohol and Drug Abuse Patient Records regulations: The Federal rules restrict any use of the information to criminally investigate or prosecute any alcohol or drug abuse patient.[facility] the event this information is protected by the Federal Confidentiality of Alcohol and Drug Abuse Patient Records regulations: The Federal rules restrict any use of the information to criminally investigate or prosecute any alcohol or drug abuse patient.[facility] Care Teams (unrecognized sec tion and content) [...] BE BASED ON THE PRIMARY CLINICAL RECORDS. [employer] [facility]. provides no warranty or guarantee of the accuracy or completeness of information in this document.
== END | disposition home or self-care (01) ==
LOC: US 14:43
PROVIDERS: PCP Family Medicine; Referring Provider Family Medicine; Visit Provider Family Medicine
DX: R93.89 Abnormal findings on diagnostic imaging of other specified body structures (principal); Z78.0 Asymptomatic menopausal state
CPT/HCPCS: 76830

== ENCOUNTER → 2023-09-04 | Outpatient (CLI) | payer MEDICARE, SELFPAY ==
--- NOTE | 2023-09-04 | EMB_PTH ---
PATIENT: TAMARA MO LOC: [facility] U#:[id number] AGE/SX: 73/F ROOM: RE09/04/[address]: PAULA Waggoenr : 1950 BED: DIS: 09/04/2023 SPEC #: [id number] RECD: 09/04/23 12:49 STATUS: MARGARITA MOJICA #: [id number] ARY: 09/04/23 00:[address]: Dee Dee Treadwell NP DEPT: SURGICAL PATHOLOGY RECD BY: Lizette Tee ENTERED: 09/04/23 13:56 SP TYPE: ENDOM BX/C ROBERTO CARLOS DR: Dr. Jonn Castillo MD Tissues: Endometrium, NOS Procedures: Surgery Specimen Level IV HEADER OPERATION: Endometrial biopsy PRE-OP DIAGNOSIS: Thickened endometrium TISSUE SUBMITTED: Endometrial lining MICROSCOPIC DIAGNOSIS Endometrial biopsy: Scant strips of benign endometrial epithelium, benign ecto- and endocervical epithelium and blood. See comment. SJ/mr 09/05/2023 COMMENT Specimen predominantly consists of blood. Correlation with clinical findings and appropriate follow up are necessary. MICROSCOPIC DESCRIPTION Slides are reviewed. GROSS DESCRIPTION Received is one container labeled with the patient's name and not further designated. The specimen consists of multiple irregular fragments of palma soft tissue that in aggregate measure 1.0 x 0.3 x 0.1 cm. The specimen is totally submitted in one cassette. / 09/04/23 TC:4 CPT:[id number]
== END | disposition home or self-care (01) ==
LOC: LABSPEC 12:59
PROVIDERS: PCP Family Medicine; Referring Provider Nurse Practitioner Women's Health; Visit Provider Nurse Practitioner Women's Health
DX: R93.89 Abnormal findings on diagnostic imaging of other specified body structures (principal)
CPT/HCPCS: 88305

== ENCOUNTER → 2023-10-09 | Outpatient (CLI) | payer MEDICARE, SELFPAY ==
--- NOTE | 2023-10-09 10:13 | US_ITS ---
INDICATION: ESOPHAGEAL STRICTURE EXAMINATION: Ultrasound US Abdomen Limited (quadrant) TECHNIQUE: Sandy scale and color doppler imaging was performed of the right upper quadrant. COMPARISON: CT scan of the abdomen and pelvis of 07/06/2023. FINDINGS: LIVER: The liver is normal in size and echogenicity measuring about 13.8 cm in length. The portal vein is patent with normal hepatopedal flow. Multiple cysts are again seen in the liver, the largest measures about 3.6 cm. There is a septated cyst in the left lobe of the liver measuring about 2 cm. There is no free fluid. GALLBLADDER AND BILIARY TREE: No shadowing gallstone, pericholecystic fluid or gallbladder wall thickening is demonstrated. The gallbladder wall measures 1 mm. The proximal common bile duct measures 5.3 mm, which is within normal limits for the patient''s age. Sonographic Zarate''s sign: Negative. PANCREAS: No focal abnormality is demonstrated in the pancreas. No pancreatic ductal dilatation. RIGHT KIDNEY: The right kidney measures 11 cm in length. The renal cortex measures 1.3 cm. No evidence of hydronephrosis. US/Abdomen Limited IMPRESSION: 1. Multiple liver cysts. 2. No evidence of gallstones or biliary dilatation. Electronically Signed: Rasta Negron MD at 11:23 EDT ,
== END | disposition home or self-care (01) ==
LOC: US 10:11
PROVIDERS: PCP Family Medicine
DX: K22.2 Esophageal obstruction (principal); K59.09 Other constipation; D12.6 Benign neoplasm of colon, unspecified; R10.11 Right upper quadrant pain
CPT/HCPCS: 76705

== ENCOUNTER → 2023-11-16 | Outpatient (CLI) | payer MEDICARE, SELFPAY ==
--- NOTE | 2023-11-16 09:49 | NM_ITS ---
CLINICAL: 73 year old female with history of right upper quadrant abdominal pain. RADIONUCLIDE HEPATOBILIARY SCINTIGRAPHY COMPARISON: Abdominal ultrasound report 10/09/2023 FINDINGS: Following the intravenous administration of 5.0 mCi of 99m Tc Mebrofenin, hepatobiliary images reveal: 1. Relatively prompt and homogeneous radiopharmaceutical concentration is noted by a normal sized liver. No parenchymal defects are identified. 2. Gallbladder activity is identified at 45 minutes post radiopharmaceutical administration. 3. Small intestinal tract is observed at 15 minutes following tracer injection. 4. Washout of the radiopharmaceutical by the hepatic parenchyma appears qualitatively normal. Cholecystokinin (0.02 ug/kg) was administered intravenously over a 30-minute period. The post CCK gallbladder ejection fraction calculated at 20 minutes following Cholecystokinin administration was noted to be 56 % (normal greater than 35%). 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 NM/Hepatobilliary Img w/Pharm Int IMPRESSION: 1. A gallbladder ejection fraction calculated to be greater than 35% following the administration of Cholecystokinin makes the probability of functional hepatobiliary disease (gallbladder and/or sphincter of Oddi dyskinesia) and/or organic hepatobiliary disease (chronic acalculous cholecystitis and/or cystic duct syndrome) to be low. (Bela Dietz et al, Journal of Nuclear Medicine 32:1695, 1991). 2. There is scintigraphic evidence of post CCK duodenal-gastric reflux as articulated above. Electronically Signed: Miguel Conti DO at 9:42 EDT ,
== END | disposition home or self-care (01) ==
LOC: NM 09:43
PROVIDERS: PCP Family Medicine
DX: R10.11 Right upper quadrant pain (principal)
CPT/HCPCS: 78227; A9537; J2805

== ENCOUNTER 2023-11-20 07:46 | Day surgery (SDC) | payer MEDICARE, SELFPAY ==
[2023-11-19 07:48] LABS: Hematocrit 41.2 % (37-47); Hemoglobin 13.5 g/dL (12.0-15.0); Mean Corp Hgb Conc 32.8 g/dL (32-36); Mean Corpuscular Hgb 29.8 pg (27.0-32.0); Mean Corpuscular Volume 90.9 fL (81-99); Mean Platelet Vol. 11.1 fl (6.2-12.0); Platelet Count 213 K/mm3 (150-450); RBC Distribution Width CV 13.3 % (11.6-14.6); Red Blood Count 4.53 M/mm3 (4.2-5.4); White Blood Count 4.8 K/mm3 (4.4-11.0)
[2023-11-20] VITALS (11 sets, daily range): BP systolic 94–113; BP diastolic 50–58; PULSE 62–72; RESP 16; TEMP 36.2–36.9; O2SAT 96–100; BMI 22.4
[2023-11-20] MEDS: Lactated Ringers 1,000 ML 15 ML IV (08:11)
--- NOTE | 2023-11-20 08:17 | HP.PCM_ITS ---
History and Physical Date of Admission: 11/20/23 Intake Vital Signs 10/05/2407:05 11/04/2414:25 11/04/2414:27 Height 5 ft 5 in 5 ft 5 in 5 ft 5 in Weight: 136 lb 6 oz BMI 22.6 BP 110/68 Intake Visit Reasons: D&C Him Specialist Required: No Is patient in pain?: No Allergies No Known Allergies Allergy (Verified 11/05/23 15:25) Medications ?Medication ?Instructions ?Recorded ?Confirmed ?Type ascorbate calcium (vitamin C) 500 1 g PO DAILY 04/22/21 11/05/23 History mg capsule cholecalciferol (vitamin D3) 125 125 mcg PO DAILY 04/22/21 11/05/23 History mcg (5,000 unit) tablet (Vitamin D3) coenzyme Q10 30 mg capsule (CoQ-10) 30 mg PO DAILY 04/22/21 11/05/23 History lactobacillus combination no.4 3 3,000 mmu cells PO DAILY 04/22/21 11/05/23 History billion cell capsule (Probiotic) magnesium 200 mg tablet 400 mg PO DAILY 04/22/21 11/05/23 History multivitamin 1 tab PO DAILY 04/22/21 11/05/23 History omega-3 fatty acids 1,000 mg PO DAILY 04/22/21 11/05/23 History psyllium 1 packet PO DAILY 04/22/21 11/05/23 History dicyclomine 10 mg capsule 20 mg (2 x 10 mg) PO Q6H PRN PRN 07/06/23 11/05/23 Rx abdominal pain #30 CAPSULES linaclotide 145 mcg capsule 145 mcg PO DAILY 07/06/23 11/05/23 History (Linzess) conjugated estrogens 0.625 mg/gram 0.625 mg vaginal .1xW 09/04/23 11/05/23 History vaginal cream (Premarin) Is last menstrual period known: No Post menopausal: Yes Patient : No : No PFSH Medical History Macular degeneration Mitral valve prolapse Surgical History History of unilateral oophorectomy S/P appy Family History Brother Cancer BrainFather Cancer ProstateGrandmother Cancer Maternal-Uterine Social History household members: spouse current occupational status: retired Smoking Status: Never smoker alcohol intake: never substance use type: does not use seatbelt use: always do you feel safe at home: Yes additional social history: - Nhan [facility] D&C Details: TAMARA MO is a 73 year old who presents for discussion about 13 mm lining, found incidentally on CT (orderd for RUQ pain) and confirmed on ultrasound. EMB was performed but was difficult to enter the endometrium and the sample showed scant benign tissue, mostly endocervix. She denies bleeding or cramping. She recently had a colonoscopy with removal of a 20 mm cyst that was pre- cancerous. She has a follow up colonoscopy in 6 months. The plan is for a hysteroscopy dilation and curettage on 11/20/2023. ROS Const ROS Unobtainable: All systems reviewed & are unremarkable except as noted in H Resp Resp: Reports system reviewed and no additional complaints, except as documented; Denies cough GI GI: Reports as per HPI Psych Psych: Reports system reviewed and no additional complaints, except as documented Exam Const General: cooperative, healthy appearing, comfortable and no acute distress Resp Effort & Inspection: normal respiratory effort Skin General: no rashes or lesions noted Psych Appearance: grossly normal Speech and Movement: speech and movement normal Coding Level of Care Code Off vis,est,level 4 Diagnoses Thickened endometrium R93.89 Assessment and Plan Assessment and Plan (1) Thickened endometrium: Status: Acute Comment: 13mm. No bleeding. EMB nl. Plan: After discussing the patient's diagnosis and treatment plan options, patient wishes to proceed with surgical management. I have discussed with the patient the risks, benefits, and alternatives of the procedure which include but are not limited to risks of anesthesia, bleeding, infection, possible damage to bowel, bladder, or surrounding vasculature which could lead to additional surgery to evaluate any complications. Patient agrees to procedure and wishes to proceed. ACOG/uptodate references given for additional information regarding procedure. planning hysteroscopy dilation and curettage
--- NOTE | 2023-11-20 08:51 | PCM.PRE.AN2 ---
ASA Classification* ASA Classification ASA Classification: 2 Assessment & Plan Anesthesia* Anesthesia Assessment Anesthesia Assessment: Discussed sedation and/or anesthesia options, risks, benefits, and alternatives with patient/parents/legal guardian/POA. Questions invited. The patient/parents/legal guardian/POA seems to understand and agrees to proceed with anesthesia plan. Reviewed the physical assessment, medical history, allergy history and patient home medications list prior to surgery/procedure/anesthetic and documented any changes. Performed airway and anesthesia risk assessments. Anesthesia Type Anesthesia Type: MAC (see written pre anesthesia record for full assessment) Anesthesia Focused Assessment* Temperature: 97.1 F Pulse Rate: 70 Blood Pressure: 113/56 Respiratory Rate: 16 Pulse Ox: 100 Airway Assessment Mouth opens: >3 cm Mallampati Score: II Focused Labs Anesthesia Preop lab: CBC WBC 4.8 K/mm3 (4.4-11.0) 11/19/23 07:02 RBC 4.53 M/mm3 (4.2-5.4) 11/19/23 07:02 Hgb 13.5 g/dL (12.0-15.0) 11/19/23 07:02 Hct 41.2 % (37-47) 11/19/23 07:02 Plt Count 213 K/mm3 (150-450) 11/19/23 07:02 CHEMISTRY Potassium 3.5 mmol/L (3.5-5.1) 07/06/23 04:30 Sodium 139 mmol/L (136-145) 07/06/23 04:30 Magnesium 2.7 mg/dL (1.6-2.6) H 09/05/21 15:40 Phosphorus 3.8 mg/dL (2.5-4.9) 02/16/21 13:34 BUN 10 mg/dL (7-18) 07/06/23 04:30 Creatinine 0.67 mg/dL (0.55-1.02) 07/06/23 04:30 Glucose 103 mg/dL (74-106) 07/06/23 04:30 TSH 1.36 uIU/mL (0.358-3.74) 05/23/23 16:48 COAG Pre-Assessment Diagnosis/Proposed Procedure Planned Operative Procedure(s): HYSTEROSCOPY D&C Anesthesia History Anesthesia History - billet grinder: Anesthesia History - billet grinder Hx Hospitalization No 11/08/23 10:48 Any Problems With Anesthesia No 11/08/23 10:48 Cholinesterase deficiency No 11/08/23 10:48 You/Your Family Experience No 11/08/23 10:48 fever (hyperthermia) with Relationship Recent Exposure to Contagious No 11/20/23 08:04 Disease Does patient have nerve No 11/08/23 10:48 stimulator Patient instructed to have device shut off --Does patient have Pacemaker No 11/20/23 08:04 or ICD? When Was Last Pacemaker Check QUESTION #4 FULL TEXT: You/Your Family Experience fever (hyperthermia) with Anesthesia Last Oral Intake Last Oral intake: Last Oral Intake NPO since 00:00 11/20/23 08:04 Meds taken in AM with sips of water? Meds patient instructed to take am of surgery PONV PONV - billet grinder: PONV - billet grinder Female Yes 11/08/23 10:48 HX of Motion Sickness No 11/08/23 10:48 HX of N/V After Surgery No 11/08/23 10:48 Non-Smoker Yes 11/08/23 10:48 Duration of Surgery greater No 11/08/23 10:48 than 60 minutes Number of Risk Factors 2 11/08/23 10:48 PONV Score Moderate Risk 11/08/23 10:48 Height & Weight Height & Weight: Anesthesia: Height & Weight Height 5 ft 5 in 11/20/23 08:04 Weight: 61.235 kg 11/20/23 08:04 Body Mass Index (BMI) 22.4 11/20/23 08:04 Respiratory Assessment Respiratory Assessment - billet grinder: Respiratory Tract Infection Hx - billet grinder Hx Respiratory Tract Infection No 11/08/23 10:48 STOP Sleep Apnea STOP Sleep Apnea - billet grinder: STOP Sleep Apnea - billet grinder Hx Hypertension No 11/08/23 10:48 Hx Sleep Apnea No 11/08/23 10:48 CPAP BIPAP Do you snore loudly (louder No 11/08/23 10:48 than talking or can be heard Do you often feel tired/ No 11/08/23 10:48 fatigued/ sleepy during daytime? Has anyone observed you stop No 11/08/23 10:48 breathing during sleep? STOP Results Negative 11/08/23 10:48 QUESTION #5 FULL TEXT : Do you snore loudly (louder than talking or can be heard through closed doors)? 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 Specify any problems Hx of Preganancy in last 3 No 11/08/23 10:48 Months Nurse Filling Out Transfusion DSCHRIBER 11/08/23 10:48 & Questions: Date: 11/08/23 11/08/23 10:48 Time: 10:49 11/08/23 10:48 Patient unable to answer at this time (ie. confused, unrespo /Reproduction History /Reproductive History - billet grinder: /Reproductive Hx- billet grinder Hx Now No 11/08/23 10:48 Gestational Age (in weeks): EDC: Hx Hx Para Hx Section SAB No 11/08/23 10:48 Active Medications Active Medications: Current Medications Generic Name Dose Route Start Last Admin Trade Name Freq PRN Reason Stop Dose Admin Lactated Ringer's 1,000 mls @ 15 mls/hr 11/20/23 08:00 11/20/23 08:11 IV 15 mls/hr .Q48H MUNA Administration PFSH Medical History Wears hearing aid Wears glasses Post-menopausal Cancer History of renal disease History of diverticulitis Back pain Gastric reflux Asthma Non-smoker History of pain when walking History of stress test History of echocardiogram Cardiology follow-up encounter Hx of breast lump History of Mohs micrographic surgery for skin cancer Macular degeneration Mitral valve prolapse Home Medications ?Medication ?Instructions ?Recorded ?Last Taken ?Type ascorbate calcium (vitamin C) 500 1 g PO DAILY 04/22/21 Unknown History mg capsule cholecalciferol (vitamin D3) 125 125 mcg PO DAILY 04/22/21 Unknown History mcg (5,000 unit) tablet (Vitamin D3) coenzyme Q10 30 mg capsule (CoQ-10) 30 mg PO DAILY 04/22/21 Unknown History lactobacillus combination no.4 3 3,000 mmu cells PO DAILY 04/22/21 Unknown History billion cell capsule (Probiotic) magnesium 200 mg tablet 400 mg PO DAILY 04/22/21 Unknown History multivitamin 1 tab PO DAILY 04/22/21 Unknown History omega-3 fatty acids 1,000 mg PO DAILY 04/22/21 Unknown History psyllium 1 packet PO DAILY 04/22/21 Unknown History conjugated estrogens 0.625 mg/gram 0.625 mg vaginal SA 09/04/23 Unknown History vaginal cream (Premarin) albuterol sulfate 90 mcg/actuation 1 inh inhalation Q6H PRN PRN 11/08/23 Unknown History breath activated powder inhaler shortness of breath or wheezing pantoprazole 20 mg tablet,delayed 20 mg PO QODAY 11/08/23 Unknown History release Allergy/AdvReac Type Severity Reaction Status Date / Time No Known Allergies Allergy Verified 11/20/23 08:03 Family History Brother Cancer Brain Father Cancer Prostate Grandmother Cancer Maternal-Uterine Surgical History History of esophagogastroduodenoscopy (EGD) Hx of colonoscopy History of unilateral oophorectomy Social History household members: spouse current occupational status: retired Smoking Status: Never smoker alcohol intake: never substance use type: does not use seatbelt use: always do you feel safe at home: Yes additional social history: - Nhan Review of Systems (Anesthesia) ROS Narrative System reviewed and no additional complaints, except as documented.
--- NOTE | 2023-11-20 09:25 | DCINST_ITS ---
Discharge Instructions Diet Discharge Diet: No restrictions Activity Discharge Activity: Return to Normal Activity, May Shower and May Take a Tub Bath (after 1 week) May resume sexual activity in: 1-2 weeks Weight Bearing Status: Weight bearing as tolerated Lifting Restrictions: none Dressing / Incision Call your doctor if you observe: Fever of 101 or Higher, Using more than 1 pad per hour, Shortness of breath and Uncontrolled pain Follow Up Care Please Follow Up With: Klarissa Henao DO When: Call [phone] to schedule appointment. Test Results: Test results from this visit will be discussed in further detail at your follow- up appointment, if applicable. Discharge Plan Admission Primary Reason for Your Visit: dilation and curettage Attending Provider: Klarissa Henao Primary Care Provider: Jonn Castillo Instructions Print Language: [place] Discharge Orders/Prescriptions Prescriptions: New ibuprofen 800 mg tablet 800 mg PO Q8H PRN (Reason: pain) Qty: 20 0RF Continued Premarin 0.625 mg/gram cream 0.625 mg vaginal SA Rx Instructions: once weekly multivitamin Tablet 1 tab PO DAILY psyllium Packet 1 packet PO DAILY coenzyme Q10 [CoQ-10] 30 mg Capsule 30 mg PO DAILY magnesium 200 mg Tablet 400 mg PO DAILY omega-3 fatty acids Capsule 1,000 mg PO DAILY ascorbate calcium (vitamin C) 500 mg Capsule 1 g PO DAILY cholecalciferol (vitamin D3) [Vitamin D3] 125 mcg (5,000 unit) Tablet 125 mcg PO DAILY Probiotic 3 billion cell Capsule 3,000 mmu cells PO DAILY pantoprazole 20 mg tablet,delayed release (DR/EC) 20 mg PO QODAY albuterol sulfate 90 mcg/actuation aerosol powdr breath activated 1 inh inhalation Q6H PRN PRN (Reason: shortness of breath or wheezing) Referrals / Follow Up: Jonn Castillo MD [Primary Care Provider] - Disposition Disposition (needs filled in before D/C Order can be placed): Home, Self Care
--- NOTE | 2023-11-20 09:35 | EMB_PTH ---
PATIENT: TAMARA MO LOC: [facility] U#:[id number] AGE/SX: 73/F ROOM: RE11/20/[address]: Dr. Klarissa Henao DO : 1950 BED: DIS: 11/20/2023 SPEC #: [id number] RECD: 11/20/23 10:49 STATUS: MARGARITA KWONDuy #: [id number] ARY: 11/20/23 09:[address]: Klarissa Henao DEPT: SURGICAL PATHOLOGY RECD BY: Lizette Tee ENTERED: 11/20/23 12:40 SP TYPE: ENDOM BX/C LELANDHR DR: Dr. Jonn Castillo MD Tissues: Endometrium, NOS Procedures: Surgery Specimen Level IV HEADER OPERATION: Hysteroscopy, D&C PRE-OP DIAGNOSIS: Thickened endometrium TISSUE SUBMITTED: Endometrial currettings MICROSCOPIC DIAGNOSIS Endometrial curettings: Fragments of benign endometrial polyps with cystic atrophic changes. / 11/21/2023 MICROSCOPIC DESCRIPTION Slides are reviewed. GROSS DESCRIPTION Received in fixative is one container labeled with the patient's name and designated Endometrial currettings. The specimen consists of multiple irregular fragments of palma polypoid tissue that in aggregate measure 2.5 x 2.0 x 0.3 cm. The specimen is totally submitted in one cassette. / 11/20/2023 TC:5 CPT:43102
--- NOTE | 2023-11-20 10:02 | OP.PCM_ITS ---
Problems Associated Problem List Diagnoses (1) Thickened endometrium: Report of Operation Date of Procedure: 11/20/23 Pre-Operative Diagnosis: thickened endometrium, postmenopausal state Post-Operative Diagnosis: thickened endometrium, postmenopausal state Surgery/Procedure Performed:: hysteroscopy dilation and curettage, polypectomy Description of Surgical Findings:: large intracavitary uterine polyp, thin endometrium Surgeon: Klarissa Henao hourly sales staff: None Type of Anesthesia: MAC Anesthesiologist: Ozzy Miles Specimen's removed: endometrial curetting's Drains: none Estimated Blood Loss (mL): 5cc Description of Procedure: Patient was prepped and draped in a normal sterile fashion under MAC anesthesia. A weighted speculum was placed in the vagina and the anterior lip of the cervix was grasped with a single-tooth tenaculum. Cervix was progressively dilated to allow passage of a 5 mm hysteroscope. The lining was fully visualized and noted to have a large intracavitary uterine polyp that appeared to be attached to the anterior uterine wall. . Uterine sounded to 8 cm. Curettage was performed and polypectomy was performed next, removing the entire polyp in sections. The specimens were sent to pathology. All instruments were removed from the vagina and excellent hemostasis was noted. Patient was awoken and taken to recovery in stable condition. Complications none Admit VTE Documentation VTE Present on Admission: No VTE Mechan Device Prophylaxis: SCD's VTE Pharm Prophylaxis ordered?: No Multi Select Codes Urinary/Genital Urinary/Genital CPT Codes: 87813 Hysteroscopy,EMC, Polypectomy
--- NOTE | 2023-11-20 10:12 | PCM.POST.ANE ---
Anesthesia: Postop Eval I Current Vital Signs Temperature: 98 F Pulse Rate: 72 Blood Pressure: 102/55 Respiratory Rate: 16 Pulse Ox: 96 Oxygen Delivery Method: Room Air Assessment Airway patent: Yes Spontaneous unlabored respirations: Yes Mental status: Awake and Calm nausea: No Vomiting: No Anesthesia Complication: No Fluid Hydration Crystalloid volume administer (ml): 500 Total IV fluid infused: 500 Progress Note Anesthesia document: Postop Eval 1 completed: Yes
--- NOTE | 2023-11-20 11:50 | POSTOPAN2_ITS ---
Anesthesia Postop Eval I Sum Postop Eval Completion status Anesthesia document: Postop Eval 1 completed: Yes Anesthesia Postop Eval I Summary Anesthesia Postop Eval I Summary: Anesthesia Postop Eval I: Assessment Summary Airway patent Yes 11/20/23 10:13 CUSTODIAL SUPERVISOR.[email or web address] Spontaneous unlabored Yes 11/20/23 10:13 CUSTODIAL SUPERVISOR.SCHR respirations Mental status Awake,Calm 11/20/23 10:13 CUSTODIAL SUPERVISOR.SCHR nausea No 11/20/23 10:13 CUSTODIAL SUPERVISOR.SCHR Vomiting No 11/20/23 10:13 [facility]OD[facility] Anesthesia Postop Eval I: Fluid Summary Crystalloid volume administer 500 11/20/23 10:13 CUSTODIAL SUPERVISOR.SCHR (ml) Colloids volume administered ( ml) Blood Product volume administered (ml) Total IV fluid infused 500 11/20/23 10:13 CUSTODIAL SUPERVISOR.[facility] Anesthesia Postop Eval I: Summary Notes Anesthesia Complication No 11/20/23 10:13 CUSTODIAL SUPERVISOR.[facility] Anesthesia Complication Comment: Post-operative progress note Anesthesia: Postop Eval II Evaluation Mental status: Awake Pain Level: 0 nausea: No Vomiting: No
--- NOTE | 2023-11-20 11:50 | PCM.POSTANE2 ---
Anesthesia Postop Eval I Sum Postop Eval Completion status Anesthesia document: Postop Eval 1 completed: Yes Anesthesia Postop Eval I Summary Anesthesia Postop Eval I Summary: Anesthesia Postop Eval I: Assessment Summary Airway patent Yes 11/20/23 10:13 RETORT PRE COOKER.SCHR Spontaneous unlabored Yes 11/20/23 10:13 RETORT PRE COOKER.SCHR respirations Mental status Awake,Calm 11/20/23 10:13 RETORT PRE COOKER.SCHR nausea No 11/20/23 10:13 RETORT PRE COOKER.SCHR Vomiting No 11/20/23 10:13 [facility] Anesthesia Postop Eval I: Fluid Summary Crystalloid volume administer 500 11/20/23 10:13 RETORT PRE COOKER.SCHR (ml) Colloids volume administered ( ml) Blood Product volume administered (ml) Total IV fluid infused 500 11/20/23 10:13 [facility] Anesthesia Postop Eval I: Summary Notes Anesthesia Complication No 11/20/23 10:13 [facility] Anesthesia Complication Comment: Post-operative progress note Anesthesia: Postop Eval II Evaluation Mental status: Awake Pain Level: 0 nausea: No Vomiting: No
== END 2023-11-20 11:45 | disposition home or self-care (01) ==
LOC: SDC 07:47 → AC 07:48
PROVIDERS: PCP Family Medicine; Referring Provider Obstetrics & Gynecology; Visit Provider Obstetrics & Gynecology
PROC: 0UDB8ZZ Extraction of Endometrium, Via Natural or Artificial Opening Endoscopic (ICD-10-PCS; CPT 58558; principal; 2023-11-20 09:25)
DX: N84.0 Polyp of corpus uteri (principal); R93.89 Abnormal findings on diagnostic imaging of other specified body structures; Z78.0 Asymptomatic menopausal state
CPT/HCPCS: 58558; 00952; 36415; 85027; 86850; 86900; 86901; 88305; J7120; J2405

== ENCOUNTER → 2024-03-18 | Outpatient (CLI) | payer MEDICARE, SELFPAY ==
--- NOTE | 2024-03-18 08:19 | US_ITS ---
STUDY: ABDOMINAL ULTRASOUND - RIGHT UPPER QUADRANT REASON FOR VISIT: Female, 73 years old HEPATIC CYST TECHNIQUE: Ultrasound evaluation of the right upper quadrant was performed with real-time and static callahan-scale imaging. TECHNICAL QUALITY: Adequate. COMPARISON: Comparison is made with prior study dated October 09, 2023. FINDINGS: Liver: The liver measures 13.3 cm. There is normal echogenicity of the liver. The bile ducts are within normal limits. There is hepatic color flow. The direction of portal flow is hepatopetal. There is a 1.8 cm x 1.9 cm x 1.6 cm cyst in the left lobe of liver. A similar appearing cyst measuring 0.9 cm x 0.9 cm x 0.7 cm is seen in the left lobe. There is a 3.5 cm x 3.2 cm x 3.2 cm cyst in the right lobe. Gallbladder: Normal distended gallbladder. The gallbladder wall measures 1 mm. There is a negative sonographic Zarate''s sign. There is no pericholecystic fluid. There are no gallstones. Common Bile Duct (C.B.D.): The common bile duct measures 3 mm. Pancreas: Normal size of the head, body and tail of the pancreas. There is normal echogenicity of the pancreas. There is no demonstrated pancreatic mass or cyst. Right Kidney: Normal size of the right kidney. The right kidney measures 10.8 cm x 5.5 cm x 4.3 cm. Normal renal cortex. The right cortex measures 1.3 cm. There is no demonstrated renal mass or cyst. There is no right hydronephrosis. US/Abdomen Limited IMPRESSION: Hepatic cysts. Electronically Signed: Julio César Manzo MD at 12:47 EST ,
== END | disposition home or self-care (01) ==
LOC: US 08:17
PROVIDERS: PCP Family Medicine
DX: K76.89 Other specified diseases of liver (principal)
CPT/HCPCS: 76705

== ENCOUNTER → 2024-09-15 | Outpatient (CLI) | payer MEDICARE, SELFPAY ==
--- NOTE | 2024-09-15 09:14 | US_ITS ---
PROCEDURE: ABDOMEN LIMITED (USABDL), 09/15/2024 REASON FOR EXAM: LIVER CYST COMPARISON: 03/18/2024 FINDINGS: Liver: 14.4 cm in length. Hepatic cysts up to 1.9 x 2.1 x 1.7 cm in the LEFT lobe and 2.9 x 2.9 x 3.4 cm in the RIGHT lobe. Largest cyst previously measured 3.5 x 3.2 x 3.2 cm in the RIGHT lobe. Gallbladder: No visualized stones, wall thickening or pericholecystic fluid. Reportedly, sonographic Zarate's was negative. Biliary tree: Unremarkable. CBD measures 2 mm. Pancreas: Partially obscured by shadowing bowel gas, grossly unremarkable as visualized. Right kidney: Unremarkable. 10.9 cm in length. Other: No visualized free fluid. US/Abdomen Limited IMPRESSION: 1. Hepatic cysts up to 3.4 cm, previously 3.5 cm. 2. Additional description as above. Reading Location: [id number]
== END | disposition home or self-care (01) ==
LOC: US 09:10
PROVIDERS: PCP Family Medicine
DX: K76.89 Other specified diseases of liver (principal)
CPT/HCPCS: 76705

== ENCOUNTER → 2025-01-26 | Outpatient (CLI) | payer MEDICARE, SELFPAY ==
--- NOTE | 2025-01-26 10:00 | BI_ITS ---
EXAM: SCRN MAMM (CAD)W/CHAPINCITO BILAT DATE: 01/26/2025 CLINICAL HISTORY: F, Age 74 y/o , SCREEN FOR BREAST CANCER TECHNIQUE: Procedure Code: [id number] Modality: MG Procedure: SCRN MAMM (CAD)W/CHAPINCITO BILAT COMPARISON: Prior exam(s) dated 06/28/2023. FINDINGS: TISSUE DENSITY: There are scattered areas of fibroglandular density. Bilateral Breast Mammographic Findings: No significant masses, calcifications or other abnormalities are identified. Benign-appearing round microcalcifications and secretory type calcifications are seen in the right breast. BI/SCRN MAMM (CAD)W/CHAPINCITO BILAT IMPRESSION: Benign screening mammogram OVERALL FINAL ASSESSMENT BI-RADS 2: BENIGN RECOMMENDATION: Routine annual follow-up in 1 Year A letter with findings and recommendations will be mailed to the patient. Reading Location: [id number]
== END | disposition home or self-care (01) ==
LOC: OPBI 09:43
PROVIDERS: PCP Family Medicine; Referring Provider Nurse Practitioner Women's Health; Visit Provider Nurse Practitioner Women's Health
DX: Z12.31 Encounter for screening mammogram for malignant neoplasm of breast (principal)
CPT/HCPCS: 77063; 77067

== ENCOUNTER → 2025-02-16 | Outpatient (CLI) | payer MEDICARE, SELFPAY ==
[2025-02-16 13:10] LABS: PTHIN 39 pg/mL (11-61)
[2025-02-16 13:12] LABS: AST(SGOT) 19 U/L (<=31); Alanine Aminotransfer ALT/SGPT 13 U/L (<=34); Albumin, Serum 4.3 g/dL (3.4-4.8); Alkaline Phosphatase 65 U/L (35-104); Anion Gap 12 (5-15); BUN 7 mg/dL (4-19); BUN/Creat Ratio 11.6 RATIO (10-20); Bilirubin, Direct 0.24 mg/dL (0.00-0.30); Calcium,Total 9.9 mg/dL (7.6-11.0); Carbon Dioxide 25.1 mmol/L (21.0-32.0); Chloride 102 mmol/L (98-108); Globulin 2.9 g/dL (2.2-4.2); Glucose 98 mg/dL (70-99); Potassium 4.2 mmol/L (3.3-5.1); Vitamin D,25 Hydroxy 68.3 ng/mL (30-100)
== END | disposition home or self-care (01) ==
LOC: MFPLAB 09:31
PROVIDERS: PCP Family Medicine; Visit Provider Family Medicine
DX: K76.89 Other specified diseases of liver (principal); M81.0 Age-related osteoporosis without current pathological fracture
CPT/HCPCS: 36415; 80048; 80076; 82306; 83970; 84443